=== PATIENT | female | born 1945 | race Caucasian/White ===

== ENCOUNTER 2019-12-24 14:39 | Outpatient (CLI) | payer OTHER, SELFPAY ==
[2019-12-24 15:22] LABS: Basophils Percent Auto 0.2 % (0.2-1.2); Eosinophils Absolute Auto 0.2 K/mm3 (0-0.3); Eosinophils Percent Auto 1.9 % (0-4.4); Hematocrit 32.8 % (37.0-47.0); Hemoglobin 10.1 g/dL (12.0-15.0); Immature Granulocyte Absolute 0.02 K/mm3 (0.00-0.031); Immature Granulocyte Percent A 0.2 % (0-0.5); Lymphocytes Absolute Auto 2.82 K/mm3 (0.9-3.2); Mean Corpuscular HGB Conc 30.8 g/dl (32-36); Mean Corpuscular Hemoglobin 27.5 pg (26-34); Mean Corpuscular Volume 89.4 fl (80-100); Mean Platelet Volume 12.7 fl (7.4-10.4); Monocytes Absolute Auto 0.5 K/mm3 (0.1-0.6); Monocytes Percent Auto 6.6 % (2.6-8.5); Neutrophils Absolute Auto 4.5 K/mm3 (1.3-6.7); Neutrophils Percent Auto 56.1 % (45.5-73.1); Platelet Count Result 187 k/mm3 (150-375); Red Blood Count 3.67 M/mm3 (4.2-5.4); Red Cell Distribution Width 13.5 % (11.5-14.5); White Blood Count 8.1 K/mm3 (4.5-10.0)
[2019-12-24 15:29] LABS: Hemoglobin A1C 5.9 % (<5.7)
[2019-12-24 15:36] LABS: Alanine Aminotransferase 15 U/L (4-35); Albumin Level 4.2 g/dL (3.5-5.1); Alkaline Phosphatase 73 U/L (38-126); Aspartate Amino Transferase 19 U/L (14-36); Bilirubin,Total 0.3 mg/dL (0.2-1.3); Blood Urea Nitrogen 21 mg/dL (7-17); Calcium 9.4 mg/dL (8.4-10.2); Carbon Dioxide 29 mmol/L (22-30); Chloride 101 mmol/L (98-107); Cholesterol 109 mg/dL (0-200); Estimated Glomerular Filt Rate > 60; Glucose 121 mg/dL (65-105); HDL Direct 52 mg/dL; Potassium 4.1 mmol/L (3.4-5.0); Sodium 140 mmol/L (137-145); Triglycerides 220 mg/dL (<150)
[2019-12-24 15:47] LABS: LDL Cholesterol Direct 36 mg/dL
[2019-12-24 16:07] LABS: Thyroid Stimulating Hormone 0.565 uIU/mL (0.465-4.680)
[2019-12-24 16:21] LABS: Creatinine Urine 126.9 mg/dL
[2019-12-24 16:27] LABS: MALB Creatinine Ratio 6.7 mg/g (0-30); Microalbumin Urine Random 8.5 mg/L (0-16.7)
[2019-12-24 16:58] LABS: Folic Acid > 20.0 ng/mL (2.76->20); Iron 55 ug/dL (37-170)
[2019-12-24 17:14] LABS: Percent Iron Saturation 13 % (20-50); Vitamin D 25 Hydroxy 42.4 ng/mL
== END 2019-12-24 14:40 | disposition home or self-care (01) ==
PROVIDERS: PCP Internal Medicine; Visit Provider Internal Medicine
DX: E55.9 Vitamin D deficiency, unspecified (principal); D64.9 Anemia, unspecified; I10 Essential (primary) hypertension; Z79.899 Other long term (current) drug therapy; Z79.4 Long term (current) use of insulin; E11.42 Type 2 diabetes mellitus with diabetic polyneuropathy
CPT/HCPCS: 36415; 80053; 80061; 82043; 82306; 82607; 82746; 83036; 83540; 83550; 84443; 85025

== ENCOUNTER 2019-12-28 13:30 | Outpatient (CLI) | payer OTHER, SELFPAY ==
[2019-12-28 15:08] LABS: IFOB Positive Control Positive; Immunochemical Fecal Occult Bl Negative (N)
== END 2019-12-28 13:31 | disposition home or self-care (01) ==
PROVIDERS: PCP Internal Medicine; Visit Provider Internal Medicine
DX: D64.9 Anemia, unspecified (principal); I10 Essential (primary) hypertension
CPT/HCPCS: 82274

== ENCOUNTER 2020-02-05 14:24 | Outpatient (CLI) | payer OTHER, SELFPAY ==
--- NOTE | ~2020-02-05 | MM_ITS ---
EXAMINATION: MM screening [facility] BI w yumiko HISTORY: Screening mammogram TECHNIQUE: Craniocaudal and mediolateral oblique 3-D tomosynthesis images were obtained and synthetic 2-D images were generated. Bilateral rotated lateral cc views. CAD analysis was submitted and interp reted. COMPARISON: 09/14/2018, 10/22/2016 bilateral digital screening mammogram examinations BREAST PARENCHYMAL COMPOSITION: There are scattered areas of fibroglandular density. FINDINGS: Benign calcifications. There is no evidence of suspicious mass, calcification, or vmware architect ural distortion to suggest malignancy in either breast. There has been no suspicious interval change. IMPRESSION: 1. No mammographic evidence of malignancy. 2. Recommend routine screening mammography in one year. BI-RADS Category 2: Benign finding(s). Reviewed, dictated and finalized at location A.
== END 2020-02-05 14:25 | disposition home or self-care (01) ==
PROVIDERS: PCP Internal Medicine; Visit Provider Internal Medicine
DX: Z12.31 Encounter for screening mammogram for malignant neoplasm of breast (principal)
CPT/HCPCS: 77063; 77067

== ENCOUNTER 2020-02-18 14:25 | Outpatient (CLI) | payer OTHER, SELFPAY ==
--- NOTE | ~2020-02-18 | DEXA_ITS ---
Bone Density Report Name: Mague Villalba Age: 74 Sex: Female Ethnicity: White Date of : 1945 Indication: postmenopausal; height loss; prior fracture; cancer; hysterectomy; Referring Provider: BRAD LUZ Study: Bone densitometry was performed. Exam Date: February 18, 2020 Accession number: [id number] Bone Density: Region BMD T-score Z-score Classification AP Spine (L2, L3) 1.126 0.6 3.0 Normal Femoral Neck (Left) 0.837 -0.1 1.9 Normal Total Hip (Left) 1.129 1.5 3.2 Normal Total Hip Bilateral Avg 1.064 1.0 2.6 Normal Femoral Neck (Right) 0.747 -0.9 1.1 Normal Total Hip (Right) 0.998 0.5 2.1 Normal World Health Organization criteria for BMD impression classify patients as: Normal (T-score at or above -1.0), Osteopenia (T-score between -1.0 and -2.5), or Osteoporosis (T-score at or below -2.5). 10-year Fracture Risk: FRAX not reported because: All T-scores for Spine Total, Hip Total, Femoral Neck at or above -1.0 Previous Exams: Region Exam Age BMD T-score BMD Change BMD Change Date g/cm2 vs Baseline vs Previous AP Spine(L2, L3) 02/18/2020 74 1.126 0.6 0.118(11.7%)# 0.025(2.3%)* 10/22/2016 71 1.101 0.4 0.093(9.2%)# -0.011(-1.0%)# 04/15/2011 65 1.111 0.5 0.104(10.3%)* 0.104(10.3%)* 05/17/2003 57 1.008 -0.5 Total Hip(Left) 02/18/2020 74 1.129 1.5 -0.003(-0.2%)# -0.018(-1.6%) 10/22/2016 71 1.147 1.7 0.016(1.4%)# -0.014(-1.2%)# 04/15/2011 65 1.161 1.8 0.030(2.6%)* 0.030(2.6%)* 05/17/2003 57 1.131 1.6 Total Hip(Right) 02/18/2020 74 0.998 0.5 -0.097(-8.8%)# -0.065(-6.1%)* 10/22/2016 71 1.062 1.0 -0.032(-2.9%)# -0.003(-0.3%)# 04/15/2011 65 1.065 1.0 -0.029(-2.7%)* -0.029(-2.7%)* 05/17/2003 57 1.095 1.3 *Denotes significance at 95% confidence level, LSC for AP Spine = 0.022 g/cm2, LSC for Total Hip = 0.027 g/cm2 Clinical Information Provided by Patient: Has had a low trauma fracture Has used the following medications: Vitamin D, Calcium Has the following medical conditions: Cancer, Hysterectomy Patient maximum height was 69 Menopause Age: 61 No regular weight bearing exercise Drinks caffeinated beverages Onset of menses at age 17 Number of children 5 Impression: The patient has normal bone mass. The patient has risk factors, including: previous fracture. The BMD for the Total Hip(Right) decreased, changing by -6.1% since the last DXA exam. Discuss
== END 2020-02-18 14:26 | disposition home or self-care (01) ==
LOC: ANHIMG 14:53
PROVIDERS: PCP Internal Medicine; Visit Provider Internal Medicine
DX: Z78.0 Asymptomatic menopausal state (principal)
CPT/HCPCS: 77080

== ENCOUNTER 2020-03-01 13:15 | Outpatient (CLI) | payer OTHER, SELFPAY ==
[2020-03-01 13:37] LABS: Basophils Percent Auto 0.3 % (0.2-1.2); Eosinophils Absolute Auto 0.1 K/mm3 (0-0.3); Eosinophils Percent Auto 1.9 % (0-4.4); Hematocrit 35.3 % (37.0-47.0); Hemoglobin 11.2 g/dL (12.0-15.0); Immature Granulocyte Absolute 0.02 K/mm3 (0.00-0.031); Immature Granulocyte Percent A 0.3 % (0-0.5); Lymphocytes Absolute Auto 2.87 K/mm3 (0.9-3.2); Lymphocytes Percent Auto 42.5 % (18.3-44.2); Mean Corpuscular HGB Conc 31.7 g/dl (32-36); Mean Corpuscular Hemoglobin 28.6 pg (26-34); Mean Corpuscular Volume 90.1 fl (80-100); Mean Platelet Volume 11.4 fl (7.4-10.4); Monocytes Absolute Auto 0.4 K/mm3 (0.1-0.6); Monocytes Percent Auto 6.4 % (2.6-8.5); Neutrophils Absolute Auto 3.3 K/mm3 (1.3-6.7); Neutrophils Percent Auto 48.6 % (45.5-73.1); Platelet Count Result 207 k/mm3 (150-375); Red Blood Count 3.92 M/mm3 (4.2-5.4); Red Cell Distribution Width 15.2 % (11.5-14.5); White Blood Count 6.8 K/mm3 (4.5-10.0)
[2020-03-01 13:49] LABS: Hemoglobin A1C 5.7 % (<5.7)
[2020-03-01 14:04] LABS: Creatinine Urine 124.2 mg/dL
[2020-03-01 14:17] LABS: Alanine Aminotransferase 16 U/L (4-35); Albumin Level 4.1 g/dL (3.5-5.1); Alkaline Phosphatase 57 U/L (38-126); Aspartate Amino Transferase 21 U/L (14-36); Bilirubin,Total 0.4 mg/dL (0.2-1.3); Blood Urea Nitrogen 27 mg/dL (7-17); Calcium 9.5 mg/dL (8.4-10.2); Carbon Dioxide 31 mmol/L (22-30); Chloride 103 mmol/L (98-107); Estimated Glomerular Filt Rate > 60; Potassium 4.6 mmol/L (3.4-5.0); Sodium 139 mmol/L (137-145)
[2020-03-01 14:31] LABS: MALB Creatinine Ratio < 4.8 mg/g (0-30); Microalbumin Urine Random < 6.0 mg/L (0-16.7)
[2020-03-01 15:16] LABS: Glucose 60 mg/dL (65-105)
== END 2020-03-01 13:16 | disposition home or self-care (01) ==
PROVIDERS: PCP Internal Medicine; Visit Provider Internal Medicine
DX: E11.40 Type 2 diabetes mellitus with diabetic neuropathy, unspecified (principal); Z79.4 Long term (current) use of insulin
CPT/HCPCS: 36415; 80053; 82043; 83036; 85025

== ENCOUNTER 2020-08-19 15:33 | Outpatient (CLI) | payer OTHER, SELFPAY ==
[2020-08-19 16:08] LABS: Basophils Percent Auto 0.2 % (0.2-1.2); Eosinophils Absolute Auto 0.2 K/mm3 (0-0.3); Eosinophils Percent Auto 1.8 % (0-4.4); Hematocrit 39.9 % (37.0-47.0); Hemoglobin 12.9 g/dL (12.0-15.0); Immature Granulocyte Absolute 0.04 K/mm3 (0.00-0.031); Immature Granulocyte Percent A 0.4 % (0-0.5); Lymphocytes Absolute Auto 3.36 K/mm3 (0.9-3.2); Lymphocytes Percent Auto 35.3 % (18.3-44.2); Mean Corpuscular HGB Conc 32.3 g/dl (32-36); Mean Corpuscular Volume 89.7 fl (80-100); Mean Platelet Volume 11.3 fl (7.4-10.4); Monocytes Absolute Auto 0.6 K/mm3 (0.1-0.6); Monocytes Percent Auto 6.1 % (2.6-8.5); Neutrophils Absolute Auto 5.3 K/mm3 (1.3-6.7); Neutrophils Percent Auto 56.2 % (45.5-73.1); Platelet Count Result 220 k/mm3 (150-375); Red Blood Count 4.45 M/mm3 (4.2-5.4); Red Cell Distribution Width 13.2 % (11.5-14.5); White Blood Count 9.5 K/mm3 (4.5-10.0)
[2020-08-19 16:22] LABS: Alanine Aminotransferase 19 U/L (4-35); Albumin Level 4.4 g/dL (3.5-5.1); Alkaline Phosphatase 89 U/L (38-126); Anion Gap 11 mmol/L (8-16); Aspartate Amino Transferase 27 U/L (14-36); Bilirubin,Total 0.5 mg/dL (0.2-1.3); Blood Urea Nitrogen 23 mg/dL (7-17); Calcium 10.7 mg/dL (8.4-10.2); Carbon Dioxide 33 mmol/L (22-30); Chloride 98 mmol/L (98-107); Estimated Glomerular Filt Rate > 60; Glucose 108 mg/dL (65-105); Potassium 4.5 mmol/L (3.4-5.0); Sodium 142 mmol/L (137-145)
[2020-08-19 16:24] LABS: Hemoglobin A1C 5.6 % (<5.7)
[2020-08-19 16:44] LABS: Iron 48 ug/dL (37-170)
[2020-08-19 16:53] LABS: Percent Iron Saturation 12 % (20-50)
[2020-08-19 17:16] LABS: Creatinine Urine 134.5 mg/dL
[2020-08-19 17:20] LABS: MALB Creatinine Ratio 7.4 mg/g (0-30); Microalbumin Urine Random 9.9 mg/L (0-16.7)
== END 2020-08-19 15:34 | disposition home or self-care (01) ==
LOC: ANHLAB 15:34
PROVIDERS: PCP Internal Medicine; Visit Provider Internal Medicine
DX: E11.40 Type 2 diabetes mellitus with diabetic neuropathy, unspecified (principal); Z79.4 Long term (current) use of insulin; D64.9 Anemia, unspecified
CPT/HCPCS: 36415; 80053; 82043; 82728; 83036; 83540; 83550; 85025

== ENCOUNTER 2020-11-29 13:35 | Outpatient (CLI) | payer OTHER, SELFPAY ==
[2020-11-29 14:07] LABS: Hemoglobin A1C 5.9 % (<5.7)
[2020-11-29 14:28] LABS: Iron 72 ug/dL (37-170)
[2020-11-29 14:31] LABS: Creatinine Urine 248.1 mg/dL
[2020-11-29 14:35] LABS: MALB Creatinine Ratio 12.3 mg/g (0-30); Microalbumin Urine Random 30.4 mg/L (0-16.7)
[2020-11-29 14:39] LABS: Percent Iron Saturation 17 % (20-50)
[2020-11-29 16:23] LABS: Alanine Aminotransferase 18 U/L (4-35); Albumin Level 4.2 g/dL (3.5-5.1); Alkaline Phosphatase 88 U/L (38-126); Anion Gap 8 mmol/L (8-16); Aspartate Amino Transferase 22 U/L (14-36); Bilirubin,Total 0.4 mg/dL (0.2-1.3); Blood Urea Nitrogen 32 mg/dL (7-17); Carbon Dioxide 28 mmol/L (22-30); Chloride 104 mmol/L (98-107); Estimated Glomerular Filt Rate > 60; Glucose 213 mg/dL (65-105); Potassium 4.2 mmol/L (3.4-5.0); Sodium 140 mmol/L (137-145)
== END 2020-11-29 13:36 | disposition home or self-care (01) ==
PROVIDERS: PCP Internal Medicine; Visit Provider Internal Medicine
DX: E11.40 Type 2 diabetes mellitus with diabetic neuropathy, unspecified (principal); E78.5 Hyperlipidemia, unspecified; Z79.4 Long term (current) use of insulin; E61.1 Iron deficiency
CPT/HCPCS: 36415; 80053; 82043; 82728; 83036; 83540; 83550

== ENCOUNTER 2021-06-16 11:13 | Outpatient (CLI) | payer OTHER, SELFPAY ==
[2021-06-16 12:00] LABS: Basophils Percent Auto 0.3 % (0.2-1.2); Eosinophils Absolute Auto 0.1 K/mm3 (0-0.3); Eosinophils Percent Auto 1.4 % (0-4.4); Hematocrit 37.6 % (37.0-47.0); Hemoglobin 12.3 g/dL (12.0-15.0); Immature Granulocyte Absolute 0.02 K/mm3 (0.00-0.031); Immature Granulocyte Percent A 0.3 % (0-0.5); Lymphocytes Percent Auto 28.8 % (18.3-44.2); Mean Corpuscular HGB Conc 32.7 g/dl (32-36); Mean Corpuscular Hemoglobin 29.1 pg (26-34); Mean Corpuscular Volume 88.9 fl (80-100); Mean Platelet Volume 11.7 fl (7.4-10.4); Monocytes Absolute Auto 0.5 K/mm3 (0.1-0.6); Neutrophils Absolute Auto 4.8 K/mm3 (1.3-6.7); Neutrophils Percent Auto 63.2 % (45.5-73.1); Platelet Count Result 208 k/mm3 (150-375); Red Blood Count 4.23 M/mm3 (4.2-5.4); Red Cell Distribution Width 12.7 % (11.5-14.5); White Blood Count 7.7 K/mm3 (4.5-10.0)
[2021-06-16 12:13] LABS: Alanine Aminotransferase 15 U/L (4-35); Albumin Level 4.5 g/dL (3.5-5.1); Alkaline Phosphatase 69 U/L (38-126); Anion Gap 9 mmol/L (8-16); Aspartate Amino Transferase 20 U/L (14-36); Bilirubin,Total 0.8 mg/dL (0.2-1.3); Blood Urea Nitrogen 21 mg/dL (7-17); Calcium 9.9 mg/dL (8.4-10.2); Carbon Dioxide 27 mmol/L (22-30); Chloride 100 mmol/L (98-107); Cholesterol 135 mg/dL (0-200); Estimated Glomerular Filt Rate > 60; Glucose 143 mg/dL (65-110); HDL Direct 46 mg/dL; Potassium 4.2 mmol/L (3.4-5.0); Sodium 136 mmol/L (137-145); Triglycerides 231 mg/dL (<150)
[2021-06-16 12:18] LABS: Creatinine Urine 83.2 mg/dL
[2021-06-16 12:22] LABS: Iron 68 ug/dL (37-170)
[2021-06-16 12:23] LABS: MALB Creatinine Ratio 10.2 mg/g (0-30); Microalbumin Urine Random 8.5 mg/L (0-16.7)
[2021-06-16 12:24] LABS: LDL Cholesterol Direct 45 mg/dL
[2021-06-16 12:31] LABS: Percent Iron Saturation 18 % (20-50)
[2021-06-16 12:40] LABS: Thyroid Stimulating Hormone 0.017 uIU/mL (0.465-4.680)
[2021-06-16 13:17] LABS: Folic Acid > 20.0 ng/mL (2.76->20)
[2021-06-16 19:06] LABS: Vitamin D 25 Hydroxy 34.7 ng/mL
== END 2021-06-16 11:14 | disposition home or self-care (01) ==
PROVIDERS: PCP Internal Medicine; Visit Provider Internal Medicine
DX: E53.8 Deficiency of other specified B group vitamins (principal); E11.319 Type 2 diabetes mellitus with unspecified diabetic retinopathy without macular edema; E11.40 Type 2 diabetes mellitus with diabetic neuropathy, unspecified; E55.9 Vitamin D deficiency, unspecified; E61.1 Iron deficiency; E78.5 Hyperlipidemia, unspecified; F33.1 Major depressive disorder, recurrent, moderate; I10 Essential (primary) hypertension; Z79.4 Long term (current) use of insulin; E78.2 Mixed hyperlipidemia
CPT/HCPCS: 36415; 80053; 80061; 82043; 82306; 82607; 82728; 82746; 83036; 83540; 83550; 84443; 85025

== ENCOUNTER 2021-10-20 14:01 | Outpatient (CLI) | payer OTHER, SELFPAY ==
[2021-10-20 14:37] LABS: Alanine Aminotransferase 17 U/L (4-35); Albumin Level 4.5 g/dL (3.5-5.1); Alkaline Phosphatase 80 U/L (38-126); Anion Gap 9 mmol/L (8-16); Aspartate Amino Transferase 22 U/L (14-36); Bilirubin,Total 0.4 mg/dL (0.2-1.3); Blood Urea Nitrogen 25 mg/dL (7-17); Calcium 10.1 mg/dL (8.4-10.2); Carbon Dioxide 27 mmol/L (22-30); Chloride 103 mmol/L (98-107); Estimated Glomerular Filt Rate > 60; Glucose 149 mg/dL (65-110); Sodium 139 mmol/L (137-145)
[2021-10-20 14:51] LABS: Creatinine Urine 106.7 mg/dL
[2021-10-20 14:55] LABS: MALB Creatinine Ratio 12.8 mg/g (0-30); Microalbumin Urine Random 13.7 mg/L (0-16.7)
[2021-10-20 15:08] LABS: Thyroid Stimulating Hormone 0.437 uIU/mL (0.465-4.680)
[2021-10-20 15:29] LABS: Free T4 Free Thyroxine 1.16 ng/mL (0.78-2.19)
== END 2021-10-20 14:02 | disposition home or self-care (01) ==
PROVIDERS: PCP Internal Medicine; Visit Provider Internal Medicine
DX: R79.89 Other specified abnormal findings of blood chemistry (principal); E66.9 Obesity, unspecified; E66.3 Overweight; E61.1 Iron deficiency; E11.40 Type 2 diabetes mellitus with diabetic neuropathy, unspecified; Z79.4 Long term (current) use of insulin; E78.2 Mixed hyperlipidemia
CPT/HCPCS: 36415; 80053; 82043; 83036; 84439; 84443

== ENCOUNTER → 2021-10-31 02:38 | Outpatient (CLI) | payer OTHER, SELFPAY ==
[2021-10-31 18:15] LABS: Influenza A QL RT-PCR Negative (Negative); Influenza B QL RT-PCR Negative (Negative); SARS-CoV-2 RNA PCR Negative
== END ==
PROVIDERS: PCP Internal Medicine; Visit Provider Internal Medicine
DX: R68.89 Other general symptoms and signs (principal); Z20.822 Contact with and (suspected) exposure to COVID-19
CPT/HCPCS: 87502; 87804; C9803; U0003; U0005

== ENCOUNTER → 2021-11-16 08:37 | Outpatient (CLI) | payer OTHER, SELFPAY ==
[2021-11-16 12:45] LABS: Influenza A QL RT-PCR Negative (Negative); Influenza B QL RT-PCR Negative (Negative); SARS-CoV-2 RNA PCR Positive
== END ==
PROVIDERS: PCP Internal Medicine; Visit Provider Internal Medicine
DX: R68.89 Other general symptoms and signs (principal); U07.1 COVID-19
CPT/HCPCS: 87502; C9803; U0003; U0005

== ENCOUNTER 2021-12-07 14:27 | Emergency (ER) | payer OTHER, SELFPAY ==
[2021-12-07 14:37] VITALS: BP 136/58; PULSE 81; RESP 16; TEMP 36.7; O2SAT 99
--- NOTE | 2021-12-07 14:41 | ED.EYEPROB ---
HPI - Eye Problem General Chief complaint: Eye Problems Stated complaint: Eye pain Time Seen by Provider: 12/07/21 14:43 Source: patient and RN notes reviewed Mode of arrival: ambulatory Limitations: no limitations History of Present Illness HPI Narrative: 76-year-old female presents to the [facility] with complaints of a red painful area to the right lower lid for the last couple of days. States she had an injection by her retina specialist. Treatment prior to arrival. Denies any trauma to the eye. chief complaint: eye pain Related Data Home Medications Medication Instructions Recorded Confirmed cholecalciferol (vitamin D3) 50 2,000 unit PO DAILY 09/20/19 11/11/21 mcg (2,000 unit) tablet glimepiride [Amaryl] mg 12/07/21 semaglutide [Rybelsus] mg PO 12/07/21 Allergies Allergy/AdvReac Type Severity Reaction Status Date / Time BURT Inhibitors Allergy Mild cough Verified 11/11/21 08:39 MEPERIDINE HCL Allergy Mild BECOMES Uncoded 11/11/21 08:39 COMBATIVE Review of Systems Review of Systems: All systems reviewed & are unremarkable except as noted in HPI and below Constitutional: Constitutional: Reports no additional constitutional complaints, Denies chills and Denies fever(s) Eyes: Eyes: Reports as per HPI, Denies eye discharge, Denies floaters, Denies itchy eyes, Denies loss of peripheral vision, Denies eye pain and Denies photophobia Comments: Swelling to the right lower lid ENT: Reports system reviewed and no additional complaints, except as documented Cardiovascular: Cardiovascular: Reports no additional cardiovascular complaints and Denies chest pain Respiratory: Respiratory: Reports no additional respiratory complaints Gastrointestinal: Gastrointestinal: Reports no additional gastrointestinal complaints and Denies abdominal pain Musculoskeletal: Musculoskeletal: Reports no additional musculoskeletal complaints Integumentary/Breasts: Skin/Breast: Reports system reviewed and no additional complaints, except as docu Neurologic: Reports system reviewed and no additional complaints, except as documented Psychiatric: Psychiatric: Reports no additional psychiatric complaints Allergic/Immunologic: Allergic/Immunologic: Reports no additional allergic/immunologic complaints PMFSH Past Medical History Medical History Diabetes mellitus with diabetic neuropathy, with long-term current use of insulin Diabetic retinopathy associated with type 2 diabetes mellitus HTN (hypertension) Left ventricular hypertrophy Mixed hyperlipidemia Sleep disorder Tibial plateau fracture, right Surgical History Surgical History History of lumpectomy History of partial hysterectomy Family History Family History Mother Hypertension Patient's mother is Family history of arthritis Family history of malignant neoplasm Father Family history of liver disease Patient's father is Cerebrovascular accident, Onset Age: 68 Sibling Patient's sister is in good health Patient's brother is in good health Family history of malignant neoplasm, Onset Age: 60 Social History Social History Smoking status: Never smoker Second hand tobacco smoke exposure: No Alcohol intake: never Substance use: never Substance use type: does not use Gender identity (if verbalized by the patient): Female Comments At the time of my signature, I reviewed and agree with the nursing past medical, surgical, social, and family history. There is no relevant family history pertinent to the patient complaint. Exam Const: General: healthy appearing, no acute distress and alert Nutritional Appearance: well nourished Orientation/consciousness: patient oriented x3 Limitations
== END 2021-12-07 14:58 | disposition home or self-care (01) ==
PROVIDERS: Emergency Provider Nurse Practitioner; PCP Internal Medicine
DX: H00.012 Hordeolum externum right lower eyelid (principal); E11.42 Type 2 diabetes mellitus with diabetic polyneuropathy; E11.319 Type 2 diabetes mellitus with unspecified diabetic retinopathy without macular edema; Z79.4 Long term (current) use of insulin; Z79.84 Long term (current) use of oral hypoglycemic drugs; I10 Essential (primary) hypertension; E78.2 Mixed hyperlipidemia; Z90.711 Acquired absence of uterus with remaining cervical stump
CPT/HCPCS: 99213; G0463

== ENCOUNTER 2022-02-11 13:45 | Outpatient (CLI) | payer OTHER, SELFPAY ==
[2022-02-11 14:18] LABS: Hematocrit 41.3 % (37.0-47.0); Hemoglobin 13.3 g/dL (12.0-15.0); Mean Corpuscular HGB Conc 32.2 g/dl (32-36); Mean Corpuscular Hemoglobin 28.7 pg (26-34); Mean Corpuscular Volume 89.2 fl (80-100); Mean Platelet Volume 11.7 fl (7.4-10.4); Platelet Count Result 206 k/mm3 (150-375); Red Blood Count 4.63 M/mm3 (4.2-5.4); Red Cell Distribution Width 13.6 % (11.5-14.5); White Blood Count 8.6 K/mm3 (4.5-10.0)
[2022-02-11 14:29] LABS: Anion Gap 9 mmol/L (8-16); Blood Urea Nitrogen 26 mg/dL (7-17); Calcium 9.7 mg/dL (8.4-10.2); Carbon Dioxide 25 mmol/L (22-30); Chloride 103 mmol/L (98-107); Estimated Glomerular Filt Rate > 60; Glucose 173 mg/dL (65-110); Sodium 137 mmol/L (137-145)
[2022-02-11 16:19] LABS: Hemoglobin A1C 6.4 % (<5.7)
[2022-02-11 19:59] LABS: Creatinine Urine 41.8 mg/dL
[2022-02-11 20:07] LABS: MALB Creatinine Ratio < 14.4 mg/g (0-30); Microalbumin Urine Random < 6.0 mg/L (0-16.7)
== END 2022-02-11 13:46 | disposition home or self-care (01) ==
LOC: ANHLAB 13:49
PROVIDERS: PCP Internal Medicine; Visit Provider Internal Medicine
DX: E11.9 Type 2 diabetes mellitus without complications (principal); E61.1 Iron deficiency; F33.1 Major depressive disorder, recurrent, moderate; I10 Essential (primary) hypertension
CPT/HCPCS: 36415; 80048; 82043; 83036; 85027

== ENCOUNTER 2022-04-13 13:36 | Outpatient (CLI) | payer OTHER, SELFPAY ==
[2022-04-13 14:14] LABS: Alanine Aminotransferase 15 U/L (6-35); Albumin Level 4.5 g/dL (3.5-5.1); Alkaline Phosphatase 78 U/L (38-126); Anion Gap 8 mmol/L (8-16); Aspartate Amino Transferase 18 U/L (14-36); Bilirubin,Total 0.4 mg/dL (0.2-1.3); Blood Urea Nitrogen 22 mg/dL (7-17); Calcium 10.4 mg/dL (8.4-10.2); Carbon Dioxide 31 mmol/L (22-30); Chloride 100 mmol/L (98-107); Estimated Glomerular Filt Rate > 60; Glucose 153 mg/dL (65-110); Potassium 4.5 mmol/L (3.4-5.0); Sodium 139 mmol/L (137-145)
[2022-04-13 15:14] LABS: Hemoglobin A1C 6.2 % (<5.7)
[2022-04-13 15:25] LABS: Creatinine Urine 65.5 mg/dL
[2022-04-13 15:54] LABS: MALB Creatinine Ratio < 9.2 mg/g (0-30); Microalbumin Urine Random < 6.0 mg/L (0-16.7)
== END 2022-04-13 13:37 | disposition home or self-care (01) ==
LOC: ANHLAB 13:40
PROVIDERS: PCP Internal Medicine; Visit Provider Internal Medicine
DX: E11.40 Type 2 diabetes mellitus with diabetic neuropathy, unspecified (principal); Z79.4 Long term (current) use of insulin
CPT/HCPCS: 36415; 80053; 82043; 83036

== ENCOUNTER 2022-05-04 09:33 | Outpatient (CLI) | payer OTHER, SELFPAY ==
[2022-05-04 10:38] LABS: Parathyroid Intact 65.4 pg/mL (7.5-53.5)
[2022-05-04 22:12] LABS: Vitamin D 25 Hydroxy 35.7 ng/mL
[2022-05-07 13:03] LABS: Ionized Calcium 5.4 mg/dL (4.8-5.6)
== END 2022-05-04 09:34 | disposition home or self-care (01) ==
PROVIDERS: PCP Internal Medicine; Visit Provider Internal Medicine
DX: E83.52 Hypercalcemia (principal)
CPT/HCPCS: 36415; 82306; 82330; 83970

== ENCOUNTER 2022-05-10 14:54 | Outpatient (CLI) | payer OTHER, SELFPAY ==
[2022-05-16 15:39] LABS: Total Volume 2625 mL
== END 2022-05-10 14:55 | disposition home or self-care (01) ==
PROVIDERS: PCP Internal Medicine; Visit Provider Internal Medicine
DX: E83.52 Hypercalcemia (principal)
CPT/HCPCS: 82340

== ENCOUNTER 2022-11-17 13:48 | Outpatient (CLI) | payer OTHER, SELFPAY ==
--- NOTE | ~2022-11-17 | CT_ITS ---
EXAMINATION: CT brain wo con INDICATION: Headache COMPARISON: None TECHNIQUE: Standard unenhanced head CT. The dose-length product (DLP) was 529.67 mGy-cm. The mA was a djusted according to patient size. Iterative reconstruction technique was employed. FINDINGS: There is no acute intraparenchymal hemorrhage. No evidence of mass lesion. No evidence of a cute infarction. There is mild periventricular and subcortical hypodensity probably related to small vessel ischemic disease. There is mild prominence of the sulci and ventricles related to cerebral atr ophy. Intracranial calcified cerebral atherosclerosis is noted. There are no extra-axial collections. There is no mass effect or midline shift. The orbits and soft tissues are unremarkable. There is mil d mucosal thickening of the paranasal sinuses. IMPRESSION: 1. No acute intracranial abnormality. 2. Age related findings. Reviewed, dictated and finalized at location B. TECHNICIAN
[2022-11-17 15:00] LABS: Basophils Percent Auto 0.3 % (0.2-1.2); Eosinophils Absolute Auto 0.1 K/mm3 (0-0.3); Eosinophils Percent Auto 1.4 % (0-4.4); Hemoglobin 15.1 g/dL (12.0-15.0); Immature Granulocyte Absolute 0.02 K/mm3 (0.00-0.031); Immature Granulocyte Percent A 0.3 % (0-0.5); Lymphocytes Absolute Auto 2.28 K/mm3 (0.9-3.2); Mean Corpuscular HGB Conc 32.1 g/dl (32-36); Mean Corpuscular Hemoglobin 28.8 pg (26-34); Mean Corpuscular Volume 89.5 fl (80-100); Mean Platelet Volume 11.7 fl (7.4-10.4); Monocytes Absolute Auto 0.5 K/mm3 (0.1-0.6); Monocytes Percent Auto 5.7 % (2.6-8.5); Neutrophils Percent Auto 63.3 % (45.5-73.1); Platelet Count Result 229 k/mm3 (150-375); Red Blood Count 5.25 M/mm3 (4.2-5.4); Red Cell Distribution Width 13.8 % (11.5-14.5); White Blood Count 7.9 K/mm3 (4.5-10.0)
[2022-11-17 15:12] LABS: Alanine Aminotransferase 19 U/L (6-35); Albumin Level 4.6 g/dL (3.5-5.1); Alkaline Phosphatase 67 U/L (38-126); Anion Gap 9 mmol/L (8-16); Aspartate Amino Transferase 22 U/L (14-36); Bilirubin,Total 0.9 mg/dL (0.2-1.3); Blood Urea Nitrogen 18 mg/dL (7-17); CRP < 0.5 mg/dL (<1.0); Calcium 10.2 mg/dL (8.4-10.2); Carbon Dioxide 30 mmol/L (22-30); Chloride 99 mmol/L (98-107); Estimated Glomerular Filt Rate > 60; Glucose 189 mg/dL (65-110); Potassium 4.3 mmol/L (3.4-5.0); Sodium 138 mmol/L (137-145)
[2022-11-17 15:31] LABS: Appearance Urine Slightly Cloudy (Clear); Bilirubin Urine Negative (Negative); Blood Urine Negative (Negative); Color Urine Yellow (Yellow); Glucose Urine UA 3+ mg/dL (Negative); Ketones Urine Negative (Negative); Leukocyte Esterase Ur Negative LEU/UL (NEGATIVE); Nitrate Urine Negative (Negative); Protein Urine Negative (Negative); Urobilinogen Urine 0.2 mg/dL (<2.0); pH Urine 5.5 (5.0-9.0)
[2022-11-17 15:33] LABS: Bacteria Urine Trace /hpf; RBC Urine 0-2 /hpf (0-2); Squamous Epithelial Cell Urine Rare /hpf (Few)
[2022-11-17 15:39] LABS: Add Urine Microscopic? YES
[2022-11-17 16:14] LABS: Erythrocyte Sedimentation Rate 8 mm/hr (0-20)
[2022-11-17 17:01] LABS: Vitamin D 25 Hydroxy 35.4 ng/mL
== END 2022-11-17 13:49 | disposition home or self-care (01) ==
PROVIDERS: PCP Internal Medicine; Visit Provider Nurse Practitioner Family
DX: R51.9 Headache, unspecified (principal); E55.9 Vitamin D deficiency, unspecified; I10 Essential (primary) hypertension; E11.9 Type 2 diabetes mellitus without complications
CPT/HCPCS: 36415; 70450; 80053; 81001; 82306; 83036; 85025; 85652; 86140

== ENCOUNTER 2023-02-03 18:47 | Emergency (ER) | payer OTHER, SELFPAY ==
[2023-02-03 19:01] VITALS: BP 142/73; PULSE 72; RESP 14; TEMP 36.6; O2SAT 96
--- NOTE | 2023-02-03 19:14 | ED.GENADULT ---
HPI - General Adult General Chief complaint: Unspecified Stated complaint: Took Extra Dose of Diabetic Meds Time Seen by Provider: 02/03/23 19:17 Source: patient, RN notes reviewed and old records reviewed Mode of arrival: ambulatory Limitations: no limitations History of Present Illness HPI narrative: 77 yo female Patient presents to the [facility] after she took an extra dose of her Rybelsus this evening. Patient states she normally takes 14 mg every morning. Was distracted this evening and took a dose this evening at 6:45 p.m., noticed that she made this air and came directly to the [facility]. Has no complaints at this time.. Onset (ago): minute(s) (15) Related Data Home Medications Medication Instructions Recorded Confirmed cholecalciferol (vitamin D3) 50 2,000 unit PO DAILY 09/20/19 02/03/23 mcg (2,000 unit) tablet gabapentin 300 mg capsule 300 mg PO QHS 11/23/22 02/03/23 Allergies Allergy/AdvReac Type Severity Reaction Status Date / Time BURT Inhibitors Allergy Mild cough Verified 11/23/22 13:19 MEPERIDINE HCL Allergy Mild BECOMES Uncoded 11/23/22 13:19 COMBATIVE Review of Systems Review of Systems: All systems reviewed & are unremarkable except as noted in HPI and below Constitutional: Constitutional: Reports no additional constitutional complaints Eyes: Eyes: Reports no additional eye complaints ENT: Reports system reviewed and no additional complaints, except as documented Cardiovascular: Cardiovascular: Reports no additional cardiovascular complaints, Denies chest pain and Denies dyspnea Respiratory: Respiratory: Reports no additional respiratory complaints, Denies chest congestion, Denies cough and Denies dyspnea Gastrointestinal: Gastrointestinal: Reports no additional gastrointestinal complaints, Denies abdominal pain, Denies nausea and Denies vomiting Musculoskeletal: Musculoskeletal: Reports no additional musculoskeletal complaints Integumentary/Breasts: Skin/Breast: Reports system reviewed and no additional complaints, except as docu Neurologic: Reports system reviewed and no additional complaints, except as documented Psychiatric: Psychiatric: Reports no additional psychiatric complaints Allergic/Immunologic: Allergic/Immunologic: Reports no additional allergic/immunologic complaints PMFSH Past Medical History Medical History Arthritis Benign essential HTN Breast screening 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 Closed fracture of right tibial plateau with routine healing Colon cancer screening Diabetes mellitus with diabetic neuropathy, with long-term current use of insulin Diabetic retinopathy associated with type 2 diabetes mellitus Dietary counseling and surveillance (01/09/18) DJD (degenerative joint disease), lumbosacral HSV (herpes simplex virus) infection HTN (hypertension) Hx of breast cancer Hypovitaminosis D Immunization counseling Left breast mass Left ventricular hypertrophy group home (current) use of insulin MDD (major depressive disorder), recurrent episode, mild Mixed hyperlipidemia Mixed hyperlipidemia Mixed hyperlipidemia due to type 2 diabetes mellitus Postmenopause Right ear impacted cerumen Sleep disorder Sleep disorder Tibial plateau fracture, right Type 2 diabetes mellitus with hyperglycemia Surgical History Surgical History History of lumpectomy History of partial hysterectomy Family History Family History Mother Hypertension Patient's mother is Family history of arthritis Family history of malignant neoplasm Father Family history of liver disease Patient's father is Cerebrovascular accident, Onset Age: 68 Sibling Patient's sister is in good health Patient's brother is in good health Family history of malignant ne
[2023-02-03 19:22] LABS: Glucose Point of Care 115 mg/dl (65-105)
== END 2023-02-03 19:39 | disposition home or self-care (01) ==
PROVIDERS: Emergency Provider Nurse Practitioner; PCP Internal Medicine
DX: T38.3X1A Poisoning by insulin and oral hypoglycemic [antidiabetic] drugs, accidental (unintentional), initial encounter (principal); I10 Essential (primary) hypertension; E11.42 Type 2 diabetes mellitus with diabetic polyneuropathy; E11.319 Type 2 diabetes mellitus with unspecified diabetic retinopathy without macular edema; Z79.84 Long term (current) use of oral hypoglycemic drugs; M47.817 Spondylosis without myelopathy or radiculopathy, lumbosacral region; Z85.3 Personal history of malignant neoplasm of breast; E78.2 Mixed hyperlipidemia; Z90.711 Acquired absence of uterus with remaining cervical stump
CPT/HCPCS: 82948; 99212; G0463

== ENCOUNTER 2023-07-05 11:30 | Outpatient (CLI) | payer OTHER, SELFPAY ==
--- NOTE | ~2023-07-05 | MM_ITS ---
EXAMINATION: MM screening [facility] BI w yumiko HISTORY: Screening TECHNIQUE: Craniocaudal and mediolateral oblique 3-D tomosynthesis images were obtained and synthetic 2-D images were generated. CAD analysis was submitted and interpreted. COMPARISON: Comparison to multiple prior studies sequentially, with oldest reviewed study dated 03/2017. BREAST PARENCHYMAL COMPOSITION: There are scattered areas of fibroglandular density. FINDINGS: There are benign breast calcifications. There is no evidence of suspicious mass, calcificat ion, or architectural distortion to suggest malignancy in either breast. There has been no suspicious interval change. IMPRESSION: 1. No mammographic evidence of malignancy. 2. Recommend routine screening mammography in one year. BI-RADS Category 2: Benign finding(s). Reviewed, dictated and finalized at location A.
--- NOTE | ~2023-07-05 | DEXA_ITS ---
Bone Density Report Name: CANDY PAIZ Age: 77 Sex: Female Ethnicity: White Date of : 1945 Indication: postmenopausal; screening for osteoporosis; height loss; prior fracture; cancer; hysterectomy; Referring Provider: YI WASHBURN Study: Bone densitometry was performed. Exam Date: July 05, 2023 Accession number: [id number] Bone Density: Region BMD T-score Z-score Classification AP Spine(L2, L3) 1.087 0.3 2.8 Normal Femoral Neck (Left) 0.808 -0.4 1.8 Normal Total Hip (Left) 1.023 0.7 2.5 Normal Femoral Neck (Right) 0.759 -0.8 1.4 Normal Total Hip (Right) 0.956 0.1 2.0 Normal Total Hip Mean 0.989 0.4 2.3 Normal World Health Organization criteria for BMD impression classify patients as: Normal (T-score at or above -1.0), Osteopenia (T-score between -1.0 and -2.5), or Osteoporosis (T-score at or below -2.5). 10-year Fracture Risk: FRAX not reported because: All T-scores for Spine Total, Hip Total, Femoral Neck at or above -1.0 Previous Exams: Region Exam Age BMD T-score BMD Change BMD Change Date g/cm2 vs Baseline vs Previous AP Spine (L2-L3) 07/05/2023 77 1.087 0.3 -0.013 (-1.2%) -0.038 (-3.4%) 02/18/2020 74 1.126 0.6 0.025 (2.3%)* 0.025 (2.3%)* 10/22/2016 71 1.101 0.4 Total Hip(Left) 07/05/2023 77 1.023 0.7 -0.124 (-10.8% -0.106 (-9.4%) 02/18/2020 74 1.129 1.5 -0.018 (-1.6%) -0.018 (-1.6%) 10/22/2016 71 1.147 1.7 Total Hip(Right) 07/05/2023 77 0.956 0.1 -0.107 (-10.1% -0.042 (-4.2%) 02/18/2020 74 0.998 0.5 -0.065 (-6.1%) -0.065 (-6.1%) 10/22/2016 71 1.062 1.0 *Denotes significance at 95% confidence level, LSC for AP Spine = 0.022 g/cm2, LSC for Total Hip = 0.027 g/cm2 Clinical Information Provided by Patient: Has had a low trauma fracture Has used the following medications: Vitamin D, Calcium Has the following medical conditions: Cancer, Hysterectomy Patient maximum height was 69 Menopause Age: 39 No regular weight bearing exercise Drinks caffeinated beverages Onset of menses at age 17 Number of children 5 Impression: The patient has normal bone mass. The patient has risk factors, including: previous fracture. The BMD for the AP Spine (L2-L3) decreased, changing by -3.4% since the last DXA exam. The BMD for the Total Hip(Left) decreased, changing by -9.4% since the last DXA exam. The BMD for the Total Hip(Right) decreased, changing by -4.2% since the las
[2023-07-05 16:51] LABS: Alanine Aminotransferase 16 U/L (6-35); Albumin Level 4.3 g/dL (3.5-5.1); Alkaline Phosphatase 63 U/L (38-126); Anion Gap 10 mmol/L (8-16); Aspartate Amino Transferase 20 U/L (14-36); Bilirubin,Total 0.6 mg/dL (0.2-1.3); Blood Urea Nitrogen 22 mg/dL (7-17); Calcium 10.2 mg/dL (8.4-10.2); Carbon Dioxide 27 mmol/L (22-30); Chloride 103 mmol/L (98-107); Cholesterol 130 mg/dL (0-200); Estimated Glomerular Filt Rate > 60; Glucose 102 mg/dL (65-110); HDL Direct 58 mg/dL; Potassium 4.2 mmol/L (3.4-5.0); Sodium 140 mmol/L (137-145); Triglycerides 149 mg/dL (<150)
[2023-07-05 17:02] LABS: LDL Cholesterol Direct 53 mg/dL
[2023-07-05 18:59] LABS: Hemoglobin A1C 5.8 % (<5.7)
== END 2023-07-05 14:56 ==
PROVIDERS: PCP Nurse Practitioner Family; Visit Provider Nurse Practitioner
DX: Z12.31 Encounter for screening mammogram for malignant neoplasm of breast (principal); Z78.0 Asymptomatic menopausal state; E78.5 Hyperlipidemia, unspecified; E11.9 Type 2 diabetes mellitus without complications
CPT/HCPCS: 36415; 77063; 77067; 77080; 80053; 80061; 83036

== ENCOUNTER 2024-01-18 15:51 | Outpatient (CLI) | payer OTHER, SELFPAY ==
--- NOTE | ~2024-01-18 | XR_ITS ---
XR hip LT min 2V DATE: 01/18/2024 16:57 INDICATION: Chronic left hip pain. No injury. TECHNIQUE: AP and lateral views COMPARISON: None FINDINGS: No fracture or dislocation, avascular necrosis or bone destruction of left hip. Left hip merlene int space appears well preserved. The pubic symphysis and sacroiliac joints appear intact. IMPRESSION: No significant abnormality of left hip Reviewed, dictated and finalized at location B.
--- NOTE | ~2024-01-18 | XR_ITS ---
XR lumbar spine 2-3V DATE: 01/18/2024 16:59 INDICATION: Chronic back pain, left lower extremity radiculopathy TECHNIQUE: AP, lateral, coned lateral lumbosacral views COMPARISON: None FINDINGS: There is approximately 40 degrees rotatory dextroscoliosis of the lumbar spine measured fro m L1 to L4. There is multilevel severe degenerative disc disease. Particularly severe on the left at L1-2 and L3- 4 and on the right at L4-5 and L5-S1. Osteopenia. There is degenerative change at the apophyseal joints. There is associated grade 1 anterolisthesis at L3-4. No fracture or bone destruction is evident. The sacroiliac joints are intact. IMPRESSION: 40 degrees rotatory dextroscoliosis and multilevel severe degenerative disc disease Grade 1 anterolisthesis at L3-4 due to degenerative change at the apophyseal joints Reviewed, dictated and finalized at location B. IMPRESSION: 40 degrees rotatory dextroscoliosis and multilevel severe degenerat rod disc disease Grade 1 anterolisthesis at L3-4 due to degenerative change at the apophyseal merlene ints
[2024-01-18 17:18] LABS: Basophils Percent Auto 0.4 % (0.2-1.2); Eosinophils Absolute Auto 0.1 K/mm3 (0-0.3); Eosinophils Percent Auto 1.7 % (0-4.4); Hematocrit 41.9 % (37.0-47.0); Immature Granulocyte Absolute 0.02 K/mm3 (0.00-0.031); Immature Granulocyte Percent A 0.3 % (0-0.5); Lymphocytes Absolute Auto 1.88 K/mm3 (0.9-3.2); Lymphocytes Percent Auto 26.4 % (18.3-44.2); Mean Corpuscular Hemoglobin 29.4 pg (26-34); Mean Corpuscular Volume 94.8 fl (80-100); Mean Platelet Volume 12.1 fl (7.4-10.4); Monocytes Absolute Auto 0.4 K/mm3 (0.1-0.6); Neutrophils Absolute Auto 4.6 K/mm3 (1.3-6.7); Neutrophils Percent Auto 65.2 % (45.5-73.1); Platelet Count Result 195 k/mm3 (150-375); Red Blood Count 4.42 M/mm3 (4.2-5.4); Red Cell Distribution Width 12.8 % (11.5-14.5); White Blood Count 7.1 K/mm3 (4.5-10.0)
[2024-01-18 17:42] LABS: MALB Creatinine Ratio 11.3 mg/g (0-30); Microalbumin Urine Random 14.5 mg/L (0-16.7)
[2024-01-18 20:34] LABS: Alanine Aminotransferase 14 U/L (6-35); Albumin Level 4.3 g/dL (3.5-5.1); Alkaline Phosphatase 109 U/L (38-126); Anion Gap 4 mmol/L (4-12); Aspartate Amino Transferase 19 U/L (14-36); Bilirubin,Total 0.5 mg/dL (0.2-1.3); Blood Urea Nitrogen 26 mg/dL (7-17); Calcium 10.3 mg/dL (8.4-10.2); Carbon Dioxide 28 mmol/L (22-30); Chloride 104 mmol/L (98-107); Estimated Glomerular Filt Rate > 60; Glucose 145 mg/dL (65-110); Potassium 4.3 mmol/L (3.4-5.0); Sodium 136 mmol/L (137-145)
[2024-01-18 21:46] LABS: Folic Acid > 20.0 ng/mL (2.76->20)
[2024-01-18 22:13] LABS: Vitamin D 25 Hydroxy 44.2 ng/mL
[2024-01-18 23:53] LABS: Hemoglobin A1C 5.9 % (<5.7)
== END 2024-01-18 15:52 | disposition home or self-care (01) ==
PROVIDERS: PCP Nurse Practitioner Family; Visit Provider Nurse Practitioner Family
DX: D64.9 Anemia, unspecified (principal); E11.9 Type 2 diabetes mellitus without complications; E53.8 Deficiency of other specified B group vitamins; E55.9 Vitamin D deficiency, unspecified; E78.5 Hyperlipidemia, unspecified; I10 Essential (primary) hypertension; G89.29 Other chronic pain; M25.552 Pain in left hip; M51.36 Other intervertebral disc degeneration, lumbar region
CPT/HCPCS: 36415; 72100; 73502; 80053; 82043; 82306; 82607; 82746; 83036; 85025

== ENCOUNTER 2024-04-09 14:07 | Outpatient (CLI) | payer OTHER, SELFPAY ==
[2024-04-09 14:43] LABS: Basophils Percent Auto 0.3 % (0.2-1.2); Eosinophils Absolute Auto 0.1 K/mm3 (0-0.3); Eosinophils Percent Auto 2.3 % (0-4.4); Hematocrit 37.9 % (37.0-47.0); Hemoglobin 12.4 g/dL (12.0-15.0); Immature Granulocyte Absolute 0.01 K/mm3 (0.00-0.031); Immature Granulocyte Percent A 0.3 % (0-0.5); Immature Platelet Fraction Pct 6.5 % (0.9-11.2); Lymphocytes Absolute Auto 1.19 K/mm3 (0.9-3.2); Lymphocytes Percent Auto 39.5 % (18.3-44.2); Mean Corpuscular HGB Conc 32.7 g/dl (32-36); Mean Corpuscular Hemoglobin 30.2 pg (26-34); Mean Corpuscular Volume 92.2 fl (80-100); Mean Platelet Volume 11.5 fl (7.4-10.4); Monocytes Absolute Auto 0.4 K/mm3 (0.1-0.6); Monocytes Percent Auto 14.6 % (2.6-8.5); Neutrophils Absolute Auto 1.3 K/mm3 (1.3-6.7); Platelet Count Result 126 k/mm3 (150-375); Red Blood Count 4.11 M/mm3 (4.2-5.4); Red Cell Distribution Width 13.3 % (11.5-14.5)
[2024-04-09 14:53] LABS: Alanine Aminotransferase 20 U/L (6-35); Albumin Level 4.3 g/dL (3.5-5.1); Alkaline Phosphatase 75 U/L (38-126); Anion Gap 9 mmol/L (4-12); Aspartate Amino Transferase 28 U/L (14-36); Bilirubin,Total 0.7 mg/dL (0.2-1.3); Blood Urea Nitrogen 13 mg/dL (7-17); Calcium 9.4 mg/dL (8.4-10.2); Carbon Dioxide 25 mmol/L (22-30); Chloride 109 mmol/L (98-107); Estimated Glomerular Filt Rate > 60; Glucose 100 mg/dL (65-110); Potassium 4.2 mmol/L (3.4-5.0); Sodium 143 mmol/L (137-145)
[2024-04-09 15:22] LABS: Thyroid Stimulating Hormone 0.786 uIU/mL (0.465-4.680)
[2024-04-09 17:58] LABS: Creatinine Urine 40.6 mg/dL
[2024-04-09 18:06] LABS: MALB Creatinine Ratio 39.4 mg/g (0-30)
[2024-04-09 18:41] LABS: Iron 39 ug/dL (37-170)
[2024-04-09 18:52] LABS: Percent Iron Saturation 11 % (20-50)
[2024-04-09 18:58] LABS: Free T4 Free Thyroxine 1.14 ng/mL (0.78-2.19)
[2024-04-09 19:04] LABS: Hemoglobin A1C 6.4 % (<5.7)
== END 2024-04-09 14:08 | disposition home or self-care (01) ==
LOC: ANHLAB 14:11
PROVIDERS: PCP Nurse Practitioner Family; Visit Provider Nurse Practitioner Family
DX: D64.9 Anemia, unspecified (principal); E55.9 Vitamin D deficiency, unspecified; E61.1 Iron deficiency; E78.2 Mixed hyperlipidemia; E78.5 Hyperlipidemia, unspecified; I10 Essential (primary) hypertension; Z79.4 Long term (current) use of insulin; E53.8 Deficiency of other specified B group vitamins; R10.9 Unspecified abdominal pain; R19.7 Diarrhea, unspecified; E11.40 Type 2 diabetes mellitus with diabetic neuropathy, unspecified
CPT/HCPCS: 36415; 80053; 82043; 82728; 83036; 83540; 83550; 84439; 84443; 85025; 85055

== ENCOUNTER 2024-05-27 12:58 | Emergency (ER) | payer OTHER, SELFPAY ==
--- NOTE | ~2024-05-27 | CT_ITS ---
EXAMINATION: CT brain wo con DATE: 05/27/2024 15:55 INDICATION: Right facial weakness. TECHNIQUE: Computed tomography (CT) of the head was performed without intravenous contrast. The mA wa s adjusted according to patient size. Iterative reconstruction technique was employed. The dose-lengt h product was 529.67 mGy-cm. COMPARISON: Head CT 11/17/2022 FINDINGS: There is no intracranial hemorrhage, acute infarction, or abnormal intracranial mass lesion . There are scattered areas of low attenuation in the cerebral white matter, which is within normal l imits for the patient's age. The ventricles are normal in size. There is mild mucosal thickening in t he ethmoid sinuses. The mastoid air cells are normal. IMPRESSION: 1. Normal aging brain. Reviewed, dictated and finalized at location E. IMPRESSION: 1. Normal aging brain.
[2024-05-27 13:02] VITALS: BP 160/61; PULSE 75; RESP 16; TEMP 36.6; O2SAT 98
[2024-05-27 15:04] VITALS: BP 177/79; PULSE 72; RESP 12; TEMP 36.6; O2SAT 99
[2024-05-27 15:14] VITALS: PULSE 74
--- NOTE | 2024-05-27 15:22 | ED.GENADULT ---
HPI - General Adult General Chief complaint: Unspecified Stated complaint: facial droop Time Seen by Provider: 05/27/24 14:55 History of Present Illness HPI narrative: This is a 78-year-old female with a past medical history significant for hypertension, hyperlipidemia, diabetes, neuropathy and OA. Today patient presents to the ED for right-sided facial droop. She states she noticed it when waking up approximately 36 hours prior. She has been having tearing and numbness to the area. No deficits in the extremities. Does not take any blood thinners. No trauma or injuries. She presently she is describing pain in the right side of her face, radiating down her jaw and in her right ear. She is unable to raise her eyebrows on the right side and has a deep droop on the right face. She is able tolerate p.o. intake but notices that on brushing teeth that she had some spillage of fluid out of her mouth on the right side. Patient thinks it could be Venegas's palsy however she does have significant risk factors for strokes with no history of stroke or TIA in the past. Denies any exposure to ticks or any recent travel. Has not received her herpes zoster vaccine but denies any rashes or complaints of any ear, nose or throat. Related Data Home Medications Medication Instructions Recorded Confirmed cholecalciferol (vitamin D3) 50 2,000 unit PO DAILY 09/20/19 04/09/24 mcg (2,000 unit) tablet Allergies Allergy/AdvReac Type Severity Reaction Status Date / Time BURT Inhibitors Allergy Mild cough Verified 02/20/24 13:07 MEPERIDINE HCL Allergy Mild BECOMES Uncoded 02/20/24 13:07 COMBATIVE Review of Systems Review of Systems: As reviewed above in the HPI [facility] Past Medical History Medical History Arthritis Benign essential HTN Breast screening 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 Closed fracture of right tibial plateau with routine healing Colon cancer screening Diabetes mellitus with diabetic neuropathy, with long-term current use of insulin Diabetic retinopathy associated with type 2 diabetes mellitus Dietary counseling and surveillance (01/09/18) DJD (degenerative joint disease), lumbosacral HSV (herpes simplex virus) infection HTN (hypertension) Hx of breast cancer Hypovitaminosis D Immunization counseling Left breast mass Left ventricular hypertrophy terminal computer operator (current) use of insulin MDD (major depressive disorder), recurrent episode, mild Mixed hyperlipidemia Mixed hyperlipidemia Mixed hyperlipidemia due to type 2 diabetes mellitus Postmenopause Right ear impacted cerumen Sleep disorder Sleep disorder Tibial plateau fracture, right Type 2 diabetes mellitus with hyperglycemia Surgical History Surgical History History of lumpectomy History of partial hysterectomy Family History Family History Mother Hypertension Patient's mother is Family history of arthritis Family history of malignant neoplasm Father Family history of liver disease Patient's father is Cerebrovascular accident, Onset Age: 68 Sibling Family history of malignant neoplasm, Onset Age: 60 Social History Social History Smoking status: Never smoker Second hand tobacco smoke exposure: No Alcohol intake: never Substance use: never Substance use type: does not use Do You Feel Safe in your Home?: Yes Lack of Transportation: No Lack of Food: Never True Current Housing: I Have Housing Concerned About Future Housing: No Difficulty Paying Gas/Electric Bills: No Difficulty Paying for Meds: YES Currently Unemployed: No Education: Bachelor's Degree Difficulty w/ Childcare or Family Care: No Living arrangements: with
[2024-05-27 16:04] VITALS: BP 149/75; PULSE 69; RESP 17; O2SAT 98
[2024-05-27] MEDS: predniSONE 20 MG TABLET 60 MG PO (16:04)
[2024-05-27] MEDS: ARTIFICIAL TEARS OPHTH SOLN 15 ML BOTTLE 1 DROP EACH EYE (16:06)
[2024-05-27 16:14] LABS: Basophils Percent Auto 0.3 % (0.2-1.2); Eosinophils Absolute Auto 0.1 K/mm3 (0-0.3); Eosinophils Percent Auto 1.6 % (0-4.4); Hemoglobin 13.3 g/dL (12.0-15.0); Immature Granulocyte Absolute 0.02 K/mm3 (0.00-0.031); Immature Granulocyte Percent A 0.3 % (0-0.5); Lymphocytes Absolute Auto 2.12 K/mm3 (0.9-3.2); Lymphocytes Percent Auto 32.9 % (18.3-44.2); Mean Corpuscular HGB Conc 32.4 g/dl (32-36); Mean Corpuscular Volume 92.3 fl (80-100); Mean Platelet Volume 11.7 fl (7.4-10.4); Monocytes Absolute Auto 0.5 K/mm3 (0.1-0.6); Monocytes Percent Auto 7.6 % (2.6-8.5); Neutrophils Absolute Auto 3.7 K/mm3 (1.3-6.7); Neutrophils Percent Auto 57.3 % (45.5-73.1); Platelet Count Result 183 k/mm3 (150-375); Red Blood Count 4.44 M/mm3 (4.2-5.4); Red Cell Distribution Width 13.3 % (11.5-14.5); White Blood Count 6.5 K/mm3 (4.5-10.0)
[2024-05-27 16:28] LABS: Anion Gap 11 mmol/L (4-12); Blood Urea Nitrogen 18 mg/dL (7-17); Carbon Dioxide 28 mmol/L (22-30); Chloride 102 mmol/L (98-107); Estimated CRCL calculation 57 ml/min; Estimated Glomerular Filt Rate > 60; Glucose 112 mg/dL (65-110); Potassium 4.6 mmol/L (3.4-5.0); Sodium 141 mmol/L (137-145)
[2024-05-27 16:48] VITALS: BP 130/82; PULSE 71; RESP 17; TEMP 36.3; O2SAT 97
== END 2024-05-27 16:54 | disposition home or self-care (01) ==
PROVIDERS: Emergency Provider Student in an Organized Health Care Education/Training Program; PCP Nurse Practitioner Family
DX: G51.0 Bell's palsy (principal); I10 Essential (primary) hypertension; E11.319 Type 2 diabetes mellitus with unspecified diabetic retinopathy without macular edema; E11.40 Type 2 diabetes mellitus with diabetic neuropathy, unspecified; E11.69 Type 2 diabetes mellitus with other specified complication; E78.2 Mixed hyperlipidemia; E55.9 Vitamin D deficiency, unspecified; M47.817 Spondylosis without myelopathy or radiculopathy, lumbosacral region; G47.9 Sleep disorder, unspecified; Z85.3 Personal history of malignant neoplasm of breast; Z90.711 Acquired absence of uterus with remaining cervical stump; Z79.84 Long term (current) use of oral hypoglycemic drugs; Z79.899 Other long term (current) drug therapy
CPT/HCPCS: 36415; 70450; 80048; 85025; 99284; A9270; J7512

== ENCOUNTER 2024-09-10 13:37 | Outpatient (CLI) | payer OTHER, SELFPAY ==
--- NOTE | ~2024-09-10 | XR_ITS ---
EXAMINATION: XR chest 2V Exam Date/Time: 09/10/2024 14:00 PATCHER HELPER HISTORY: R05.9 - Cough X3DYS, HX HTN Comparison: 10/29/2014. RESULT: Lines, tubes, and devices: None. Lungs and pleura: Clear. Cardiomediastinal silhouette: Stable. Other: No acute osseous or upper abdominal finding. IMPRESSION: No acute cardiopulmonary process. Reviewed, dictated and finalized at location K. HER HELPER
[2024-09-10 15:57] LABS: Influenza A QL RT-PCR Negative (Negative); Influenza B QL RT-PCR Negative (Negative); RSV RNA, RT-PCR Negative (Negative); SARS-CoV-2 RNA PCR Positive (Negative)
== END 2024-09-10 13:38 | disposition home or self-care (01) ==
PROVIDERS: PCP Nurse Practitioner Family; Visit Provider Nurse Practitioner Family
DX: R50.9 Fever, unspecified (principal)
CPT/HCPCS: 71046; 87637

== ENCOUNTER 2024-10-12 12:24 | Outpatient (CLI) | payer OTHER, SELFPAY ==
[2024-10-12 13:02] LABS: Basophils Percent Auto 0.5 % (0.2-1.2); Eosinophils Absolute Auto 0.2 K/mm3 (0-0.3); Eosinophils Percent Auto 2.6 % (0-4.4); Hematocrit 40.2 % (37.0-47.0); Hemoglobin 13.2 g/dL (12.0-15.0); Immature Granulocyte Absolute 0.02 K/mm3 (0.00-0.031); Immature Granulocyte Percent A 0.3 % (0-0.5); Lymphocytes Absolute Auto 1.95 K/mm3 (0.9-3.2); Lymphocytes Percent Auto 31.9 % (18.3-44.2); Mean Corpuscular HGB Conc 32.8 g/dl (32-36); Mean Corpuscular Hemoglobin 30.2 pg (26-34); Monocytes Absolute Auto 0.4 K/mm3 (0.1-0.6); Monocytes Percent Auto 6.7 % (2.6-8.5); Neutrophils Absolute Auto 3.6 K/mm3 (1.3-6.7); Platelet Count Result 180 k/mm3 (150-375); Red Blood Count 4.37 M/mm3 (4.2-5.4); Red Cell Distribution Width 13.2 % (11.5-14.5); White Blood Count 6.1 K/mm3 (4.5-10.0)
[2024-10-12 13:13] LABS: Alanine Aminotransferase 16 U/L (6-35); Albumin Level 4.3 g/dL (3.5-5.1); Alkaline Phosphatase 78 U/L (38-126); Anion Gap 1 mmol/L (4-12); Aspartate Amino Transferase 20 U/L (14-36); Bilirubin,Total 0.6 mg/dL (0.2-1.3); Blood Urea Nitrogen 16 mg/dL (7-17); Carbon Dioxide 29 mmol/L (22-30); Chloride 108 mmol/L (98-107); Cholesterol 150 mg/dL (0-200); Estimated Glomerular Filt Rate > 60; Glucose 116 mg/dL (65-110); HDL Direct 63 mg/dL; Potassium 4.5 mmol/L (3.4-5.0); Sodium 138 mmol/L (137-145); Triglycerides 163 mg/dL (<150)
[2024-10-12 13:23] LABS: LDL Cholesterol Direct 59 mg/dL; NT Pro B Type Natriuretic Pept 144 pg/mL (19.9-100)
[2024-10-12 14:04] LABS: Hemoglobin A1C 6.9 % (<5.7)
== END 2024-10-12 12:25 | disposition home or self-care (01) ==
PROVIDERS: PCP Nurse Practitioner Family; Visit Provider Nurse Practitioner Family
DX: R06.02 Shortness of breath (principal); E11.40 Type 2 diabetes mellitus with diabetic neuropathy, unspecified; Z79.4 Long term (current) use of insulin; E11.9 Type 2 diabetes mellitus without complications; I10 Essential (primary) hypertension; E61.1 Iron deficiency
CPT/HCPCS: 36415; 80053; 80061; 83036; 83880; 85025

== ENCOUNTER 2025-02-06 14:31 | Emergency (ER) | payer OTHER, SELFPAY ==
--- NOTE | ~2025-02-06 | CT_ITS ---
History: Back pain PROCEDURE: CT lumbar spine without intravenous contrast. COMPARISON: Reference is made to a plain film evaluation of the lumbar spine dated 01/18/2024 TECHNIQUE: Multiple contiguous axial images of the lumbar spine were performed without the administration of int ravenous contrast. DLP: 1056 mGy-cm FINDINGS: 46 degrees of dextroscoliotic curvature of the lumbar spine is present, increased from previous plain film examination. Diffuse degenerative disease is identified. Most prominent disease is as follows: Left paracentral disc protrusion at the level of L2/L3 with narrowing of the left neural foramen. Broad-based disc protrusion at the level of L4/L5, with narrowing of the spinal canal and bilateral n eural foramen. No acute compression fractures are present. No soft tissue abnormality is noted. Impression: Severe degenerative disease (as detailed above) without acute compression fracture. No soft tissue abnormality is appreciated to account for patient's recent symptoms. Reviewed, dictated and finalized at location A. Impression: Severe degenerative disease (as detailed above) without acute compression fract ure. No soft tissue abnormality is appreciated to account for patient's recent sympt oms.
[2025-02-06 14:32] VITALS: BP 170/107; PULSE 80; RESP 18; TEMP 36.6; O2SAT 99
[2025-02-06 15:19] VITALS: BP 170/83; PULSE 76; RESP 20; O2SAT 98
--- NOTE | 2025-02-06 16:11 | PC.NURSE ---
assisted patient to commode to urinate. patient back in bed and hooked back up to monitor with call light in reach. given warm blanket for comfort
--- OUTSIDE RECORDS SUMMARY | 2025-02-06 16:34 | XMS_ITS | Referral Summary ---
Author Organization [facility] [place] [address] Address [address] [place] [address] Care Team Providers Care Laboratory Tech Name Role Phone Snow Jacobson MD Primary Care Provider Allergies Active Allergy Reactions Criticality Noted Date Comments Diego Inhibitors Unknown 09/25/2019 Meperidine Mental status changes Low Reaction: Mental Status Changes, , Active Problems Problem Noted Date Diagnosed Date Atopic rhinitis 03/02/2014 Overview (01/19/2017): Allergic rhinitis Benign hypertension 03/02/2014 Overview (01/20/2017): BENIGN HYPERTENSION Type II diabetes mellitus uncontrolled 4 Overview (01/20/2017): Diabetes mellitus type II, uncontrolled Thyroid nodule 03/02/2014 Overview (01/20/2017): Thyroid nodule Family history of skin cancer 03/02/2014 Overview (01/20/2017): Family history of skin cancer Hyperlipidemia 03/02/2014 Overview (01/20/2017): Hyperlipidemia LDL goal < 100 Abnormal mammogram 08/12/2010 Immunizations Immunization Administration Dates Next Due Influenza, Split 08/13/2010 Pneumococcal Polysaccharide PPV23 10/17/2008 Tdap 08/13/2010 Social History Tobacco Use Types Packs/Day Years Used Date Smoking Tobacco: Never Alcohol Use Standard Drinks/Week Comments No 0 (1 standard drink = 0.6 oz pur e alcohol) Comments Unknown Sex and Gender Information Value Date Recorded Sex Assigned at Not on file Legal 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 Gender Identity Not on file Sexual Orientation Not on file Last Filed Vital Signs Vital Sign Reading Time Taken Comments Blood Pressure 165/83 07/16/2022 8:47 AM CDT Pulse 66 07/16/2022 8:47 AM CDT Temperature - - Respiratory Rate - - Oxygen Saturation - - Inhaled Oxygen Concentration - - Weight 94.8 kg (209 lb) 08/22/2018 9:19 AM GLAZE SPRAYER Height 172.7 cm (5' 8 ) 08/22/2018 9:19 AM GLAZE SPRAYER Body Mass Index 31.78 08/22/2018 9:19 AM GLAZE SPRAYER Plan of Treatment Not on file Insurance MEDICARE [facility] Care Teams Laboratory Tech Relationship Specialty Start Date End Date Snow Jacobson MD [address] [facility] [address] [place] [address] PCP - General Family Medicine 08/22/18
--- OUTSIDE RECORDS SUMMARY | 2025-02-06 16:34 | XMS_ITS | Clinical Summary ---
Author Organization [facility] Address [address] [place] [address] Care Team Providers Care Manager Of Warehouse Name Role Phone Jens Mcguire MD Primary Care Provider [phone] Allergies Active Allergy Reactions Criticality Noted Date Comments Diego Inhibitors Unknown 09/25/2019 Meperidine Other (see comment) Low 08/23/2022 Reaction: Mental Status Changes, , Medications gabapentin (NEURONTIN) 300 MG capsule Take 300 mg by mouth nightly at bedtime. 08/10/2022 Active escitalopram (LEXAPRO) 10 MG tablet Take 10 mg by mouth daily. 05/28/2022 Active FARXIGA 10 MG Tab daily. 08/15/2022 Active metFORMIN (GLUCOPHAGE) 1000 MG tablet Take 1,000 mg by mouth 2 (two) times daily. 05/31/2022 Active RYBELSUS 7 MG Tab Take 1 tablet by mouth daily. 08/11/2022 Active atorvastatin (LIPITOR) 20 MG tablet Take 20 mg by mouth daily. 07/30/2022 Active olmesartan 40 MG Tab Take 1 tablet by mouth daily. 08/04/2022 Active amLODIPine (NORVASC) 5 MG tablet Take 5 mg by mouth daily. 08/04/2022 Active Active Problems Problem Noted Date Diagnosed Date Uncontrolled type 2 diabetes mellitus with hyperglycemia ([facility]/H[facility]) 03/02/2014 Overview (02/22/2023): Diabetes mellitus type II, uncontrolled Atopic rhinitis 03/02/2014 Overview (02/22/2023): Allergic rhinitis Benign hypertension 03/02/2014 Overview (02/22/2023): BENIGN HYPERTENSION Hyperlipidemia 03/02/2014 Overview (02/22/2023): Hyperlipidemia LDL goal < 100 Thyroid nodule 03/02/2014 Overview (02/22/2023): Thyroid nodule Abnormal mammogram 08/12/2010 Family History Medical History Relation Comments Cancer Brother 1 Cancer Brother 2 Cancer Brother 3 skin cancer Cancer Father intestinal Cancer Mother pancreatic Cancer Sister osteocarcinomia to thigh Relation Status Comments Brother 1 Brother 2 Brother 3 Alive Father Mother Sister Social History Tobacco Use Types Packs/Day Years Used Date Smoking Tobacco: Never Smokeless Tobacco: Never Alcohol Use Standard Drinks/Week Comments Not Currently 0 (1 standard drink = 0.6 oz pur e alcohol) PHQ-2 Answer Date Recorded PHQ-2 Score - If the patient scores above 3, please move on to questions 3-9 1 08/23/2022 Comments Unknown Sex and Gender Information Value Date Recorded Sex Assigned at Not on file Legal Sex Female 11:15 AM CDT Gender Identity Not on file Sexual Orientation Not on file Last Filed Vital Signs Vital Sign Reading Time Taken Comments Blood Pressure 153/89 08/23/2022 1:05 PM LOOM TUNER Pulse 78 08/23/2022 1:05 PM LOOM TUNER Temperature 37 C (98.6 F) 08/23/2022 1:05 PM LOOM TUNER Respiratory Rate 20 08/23/2022 1:05 PM LOOM TUNER Oxygen Saturation 95% 08/23/2022 1:05 PM LOOM TUNER Inhaled Oxygen Concentration - - Weight 85.4 kg (188 lb 3.2 oz) 08/23/2022 1:05 P M LOOM TUNER Height 171.5 cm (5' 7.5 ) 08/23/2022 1:05 PM LOOM TUNER Body Mass Index 29.04 08/23/2022 1:05 PM LOOM TUNER Plan of Treatment Health Maintenance Due Date Last Done Comments Kidney Health Evaluation 1945 Hemoglobin A1C 1946 Lipid Panel 1946 Diabetes: Retinopathy Eye Exam 1964 Hepatitis C 1964 Zoster Vaccines (1 of 2) 1996 Pneumococcal Vaccine: 50+ Years (2 of 2 - PCV) 10/17/2009 10/17/2008 Annual Medicare Wellness Visit 2011 Dexa Scan (General) 2011 DTaP, Tdap and Td Vaccines ( 2 - Td or Tdap) 08/13/2020 08/13/2010 RSV Immunization or 60+ Years (1 - 1-dose 75+ series) 2021 COVID-19 Vaccine (4 - 2023-2 5 season) 2024 07/12/2021, 12/17/2020, 11/19/2020 Meningococcal B Vaccine Aged Out No l onger eligible based on patient's age to complete this topic Meningococcal Vaccine Aged Out No gilberto guilherme eligible based on patient's age to complete this topic RSV Immunizations Under 20 Months Aged Out No longer eligible b ased on patient's age to complete this topic Insurance [employer] Care Teams Manager Of Warehouse Relationship Specialty Start Date End Date Jens Mcguire MD [address] [place] [address] PCP - General INTERNAL MEDICINE 05/11/22
--- OUTSIDE RECORDS SUMMARY | 2025-02-06 16:34 | XMS_ITS | Clinical Summary ---
Author Organization [facility] [address] Address [address] [place] [address] Care Team Providers Care Therapy Aide Name Role Phone Snow Jacobson MD Primary [...] 08/13/2010 Pneumococcal Polysaccharide PPV23 10/17/2008 Tdap 08/13/2010 Surgical History Surgery Date Site/Laterality Comments OTHER SURGICAL HISTORY Cancer, uterine: Hysterectomy OTHER SURGICAL HISTORY Goiter: FNA, nodular hyperpalsia BREAST LUMPECTOMY left breast lumpectomy Medical History Medical History Date Comments Malignant neoplasm of uterus (HCC) 1984 Cancer, uterine Hx Other Medical 2010 Goiter Family History Medical History Relation Name Comments Lung cancer Brother 3 Cancer -lung; C ause of : Cancer -lung Melanoma Brother 3 Cancer -melanom a; Cause of : Cancer -melanoma Liver cancer Father 2 Cancer -liver; Stroke Father 2 Stroke; Cause o f : Stroke Coronary artery disease Mother Luisa nary artery disease; Hypertension Mother Hypertension; Pancreatic cancer Mother Cancer -pa ncreatic; Other Other Family history of thalassemia; Bladder Cancer Sister Cancer -bladd er; Lymphoma Sister Cancer -lymphom a; Relation Name Status Comments Brother 1 (Age 58) Brother 2 (Age 63) Brother 3 Father 1 (Age 69) Father 2 Mother Other Sister Social History Tobacco Use Types Packs/Day Years Used Date Smoking Tobacco: Never Alcohol Use Standard Drinks/Week Comments No 0 (1 standard drink = 0.6 oz pur e alcohol) Comments Unknown Sex and Gender Information Value Date Recorded Sex Assigned at Not on file Legal Sex Female 11:58 PM DUCT MAKER Gender Identity Not on file Sexual Orientation Not on file Obstetrics History Last Filed Vital Signs Vital Sign Reading Time Taken Comments Blood Pressure 165/83 07/16/2022 8:47 AM CDT Pulse 66 07/16/2022 8:47 AM CDT Temperature - - Respiratory Rate - - Oxygen Saturation - - Inhaled Oxygen Concentration - - Weight 94.8 kg (209 lb) 08/22/2018 9:19 AM DUCT MAKER Height 172.7 cm (5' 8 ) 08/22/2018 9:19 AM DUCT MAKER Body Mass Index 31.78 08/22/2018 9:19 AM DUCT MAKER Plan of Treatment Health Maintenance Due Date Last Done Comments Depression Screening 1945 Fall Risk Assessment 1945 Hepatitis C Screening 1945 Osteoporosis Screening-Bone Density Scan 1946 Hepatitis B Screening 1964 Zoster Vaccine (1 of 2) 1996 Pneumococcal vaccine 65+ (2 of 2 - PCV) 10/17/2009 0 10/17/2008 Well Visit 65+ 2011 DTaP/Tdap/Td Vaccine (2 - Td or Tdap) 08/13/2020 Influenza Vaccine (#1) 2024 09/10/2019, 2009 Insurance MEDICARE RAILROAD [facility] [address] [address] Care Teams Therapy Aide Relationship Specialty Start Date End Date Snow Jacobson MD [address] [facility] [address] [place] [address] PCP - General Family Medicine 08/22/18
[2025-02-06 16:41] VITALS: BP 134/84; PULSE 63; RESP 17; O2SAT 94
[2025-02-06] MEDS: ACETAMINOPHEN 500 MG TABLET 1000 MG PO (16:50)
[2025-02-06] MEDS: diazePAM INJ (*CRX) 10 MG/2 ML SYRINGE 5 MG IM (16:51)
[2025-02-06] MEDS: IBUPROFEN 600 MG TABLET PO (17:14)
[2025-02-06] MEDS: predniSONE 20 MG TABLET 60 MG PO (17:14)
[2025-02-06 17:17] VITALS: BP 165/78; PULSE 74; RESP 20; O2SAT 94
--- NOTE | 2025-02-06 17:19 | ED.BACK ---
HPI - Back Pain/Injury General Chief Complaint: Back Pain/Injury Stated Complaint: back pain Time Seen by Provider: 02/06/25 16:18 Source: patient Mode of arrival: ambulatory Limitations: no limitations History of Present Illness HPI Narrative: This is a 79 year old female that presents to the ER for left sided low back pain. Reports she has trouble with sciatica. She has been doing back injections with interventional pain consultants due to this. Reports she had one injection at the end of last year which did help her. She received an additional injection a couple of weeks ago and her pain has been worse since. Reports the pain radiates into the left hip and down into the leg. Reports muscle spasm. Denies saddle anesthesia, bowel/bladder incontinence. Related Data Home Medications ?Medication ?Instructions ?Recorded ?Confirmed ?Last Taken ?Type cholecalciferol (vitamin D3) 50 2,000 unit PO DAILY 09/20/19 10/15/24 Unknown History mcg (2,000 unit) tablet ferrous sulfate 325 mg (65 mg 325 mg PO DAILY 07/04/24 10/15/24 Unknown History iron) tablet,delayed release vitamin B complex 1 cap PO DAILY 10/15/24 10/15/24 Unknown History Allergies Allergy/AdvReac Type Severity Reaction Status Date / Time BURT Inhibitors Allergy Mild cough Verified 02/06/25 15:27 MEPERIDINE HCL Allergy Mild BECOMES Uncoded 02/06/25 15:27 COMBATIVE Review of Systems Review of Systems: CONSTITUTIONAL: Denies fever SKIN: Denies rash MUSCULOSKELETAL: Reports back pain, joint pain, and myalgia. NEUROLOGIC: Denies numbness, or weakness. 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 Left breast mass Immunization counseling Hx of breast cancer HSV (herpes simplex virus) infection DJD (degenerative joint disease), lumbosacral Dietary counseling and surveillance (01/09/18) Colon cancer screening Closed fracture of right tibial plateau with routine healing 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 Breast screening Benign essential HTN Arthritis Tibial plateau fracture, right Diabetic retinopathy associated with type 2 diabetes mellitus Left ventricular hypertrophy Sleep disorder Mixed hyperlipidemia HTN (hypertension) Diabetes mellitus with diabetic neuropathy, with long-term current use of insulin Surgical History Surgical History (Reviewed 10/15/24 @ 14:14 by Stehpenie Mcintosh [facility]) History of lumpectomy History of partial hysterectomy Family History Family History Mother Hypertension Patient's mother is Family history of arthritis Family history of malignant neoplasm Father Family history of liver disease Patient's father is Cerebrovascular accident, Onset Age: 68 Sibling Family history of malignant neoplasm, Onset Age: 60 Social History Social History (Reviewed 10/15/24 @ 14:14 by Stephenie Mcintosh [facility]) Smoking status: Never smoker Second hand tobacco smoke exposure: No Alcohol intake: never Substance use: never Substance use type: does not use Do You Feel Safe in your Home?: Yes Lack of Transportation: No Lack of Food: Never True Current Housing: I Have Housing Concerned About Future Housing: No Difficulty Paying Gas/Electric Bills: No Difficulty Paying for Meds: YES Currently Unemployed: No Education: Bachelor's Degree Difficulty w/ Childcare or Family Care: No Living arrangements: with family Occupation/Education: retired Gender identity (if verbalized by the patient): Female Sexual Orientation (if Verbalized by the Patient): Straight or Heterosexual Spiritual care concerns: No Agree to blood products: Yes Exam Narrative: GENERAL: Elderly, well-nourished, and in no acute distress. HEAD: Normocephalic, atraumatic. EYES: EOMI. CHEST: Clear to auscultation. No respiratory distress. No wheezes rales or rhonchi HEART: Regular rate and rhythm. No murmur heard. Normal peripheral pulses. EXTREMITIES: Normal range of motion. No edema. Strength equal in bilateral lower extremities (5/5). Normal DP pulses SKIN: Warm, dry, no rash. NEURO: No focal deficits. Alert and oriented x3. Normal gait PSYCH: Anxious, tearful Course Course Emergency Course: Patient updated on her workup and agrees with plan of care Vital Signs Vital signs: Vital Signs Temperature 97.8 F 02/06/25 14:32 Pulse Rate 80 02/06/25 14:32 Respiratory Rate 18 02/06/25 14:32 Blood Pressure 170/107 H 02/06/25 14:32 Pulse Oximetry 99 02/06/25 14:32 Oxygen Delivery Room Air 02/06/25 14:32 Temperature 97.8 F 02/06/25 14:32 Pulse Rate 70 02/06/25 19:05 Respiratory Rate 18 02/06/25 19:05 Blood Pressure 176/76 H 02/06/25 19:05 Pulse Oximetry 94 02/06/25 19:05 Oxygen Delivery Room Air 02/06/25 15:19 MDM - Back Pain/Injury MDM Narrative Medical decision making narrative: Patient presents the emergency department for acute on chronic low back pain. She is afebrile and non toxic appearing. Her vitals are stable. She is neurologically intact. CT lumbar spine shows severe degenerative disease without acute findings. Patient given Tylenol, anti-inflammatory, muscle relaxer, lidocaine patch. Updated on her workup and agrees with plan of care. She will be given follow-up with neuro surgery. She was given warnings to return to the ER Differential Diagnosis Differential diagnosis: Likely sciatica, strain of lumbar region and other (Degenerative disc disease, chronic back pain) Imaging Data Radiologist's impression: ITS Impressions Lumbar Spine CT 02/06/25 17:03 Impression: Severe degenerative disease (as detailed above) without acute compression fracture. No soft tissue abnormality is appreciated to account for patient's recent symptoms. Critical Care Time Critical Care Time Critical Care Time: No Discharge Plan Discharge Clinical Impression: Sciatica Qualifiers: Laterality: left Qualified Code(s): M54.32 - Sciatica, left side Patient Disposition: Home Condition: Stable Instructions: Sciatica (ED) Additional Instructions: Return to the ER if you experience weakness, numbness, bowel/bladder incontinence, or any other symptoms that are concerning to you Rest, use ice/heat, take anti-inflammatories (Aleve, Ibuprofen, Naproxen, etc) or Tylenol as needed for pain as well as muscle relaxer (Flexeril) as needed for pain. Muscle relaxers can make you drowsy, do not drive if you take this. Take steroid as prescribed. Lidocaine patch to the area of pain as needed Follow up with your primary care doctor and neurosurgery Patient Language: Syrian Prescriptions: New prednisone 20 mg tablet 40 mg PO DAILY 4 Days Qty: 8 0RF lidocaine 5 % adhesive patch,medicated 1 patch topical DAILY Qty: 15 0RF Rx Instructions: leave on most painful area for up to 12 hrs cyclobenzaprine 10 mg tablet 10 mg PO BID PRN (Reason: muscle spasm) Qty: 14 0RF No Action cholecalciferol (vitamin D3) 2,000 unit tablet 2,000 unit PO DAILY ferrous sulfate 325 mg (65 mg iron) tablet,delayed release (DR/EC) 325 mg PO DAILY Rybelsus 14 mg tablet See Rx Instructions .ROUTE .COMPLEX Qty: 30 5RF Dose Instruction: TAKE 1 TABLET BY MOUTH EVERY DAY Rx Instructions: TAKE 1 TABLET BY MOUTH EVERY DAY vitamin B complex Capsule 1 cap PO DAILY gabapentin 300 mg capsule See Rx Instructions PO BID Qty: 270 1RF Rx Instructions: 300 mg in the am and 600mg at night. azithromycin 250 mg tablet See Rx Instructions PO .COMPLEX Qty: 6 0RF Rx Instructions: For 250 mg dose pack: take 500 mg today (day 1), then 250 mg for 4 days (days 2-5) PO prednisone 20 mg tablet 40 mg PO DAILY Qty: 10 0RF omega-3 acid ethyl esters [Lovaza] 1 gram capsule 2 cap PO BID Qty: 360 1RF ondansetron 4 mg tablet,disintegrating 4 mg PO Q8H PRN (Reason: nausea and vomiting) Qty: 14 0RF artifi.tears(hypromellose)(PF) 1.7 % drops with applicator 1 drp RIGHT EYE Q1H PRN (Reason: dry eyes) Qty: 12 0RF Rx Instructions: while awake; not to exceed 16 doses per 24 hour period acetaminophen [Tylenol Extra Strength] 500 mg tablet 1,000 mg PO Q6H PRN (Reason: pain) Qty: 30 0RF omeprazole 40 mg capsule,delayed release(DR/EC) 40 mg PO DAILY Qty: 30 2RF (DME) Comfort Touch Ult Thin Lancets 31 gauge misc See Rx Instructions .Route Qty: 100 0RF Rx Instructions: check blood sugar 2xdaily (DME) blood-glucose meter [Contour Next EZ Meter] Kit See Rx Instructions .Route Qty: 1 0RF Rx Instructions: test blood sugar 2xdaily (DME) Contour Next Test Strips Strip See Rx Instructions .Route Qty: 100 0RF Rx Instructions: test blood sugar 2xdaily metformin 1,000 mg tablet 1,000 mg PO DAILY Qty: 180 1RF atorvastatin 20 mg tablet See Rx Instructions .ROUTE .COMPLEX Qty: 90 1RF Dose Instruction: TAKE 1 TABLET BY MOUTH EVERY DAY Rx Instructions: TAKE 1 TABLET BY MOUTH EVERY DAY amlodipine 5 mg tablet See Rx Instructions .ROUTE .COMPLEX Qty: 90 1RF Dose Instruction: 5 MG ORALLY DAILY Rx Instructions: 5 MG ORALLY DAILY olmesartan 40 mg tablet See Rx Instructions .ROUTE .COMPLEX Qty: 90 1RF Dose Instruction: TAKE 1 TABLET BY MOUTH EVERY DAY Rx Instructions: TAKE 1 TABLET BY MOUTH EVERY DAY albuterol sulfate 90 mcg/actuation HFA aerosol inhaler 2 inh inhalation Q4H PRN (Reason: shortness of breath or wheezing) Qty: 8.5 0RF trazodone 50 mg tablet See Rx Instructions .ROUTE .COMPLEX Qty: 90 1RF Dose Instruction: TAKE 1/2 TO 1 TABLET BY MOUTH AT BEDTIME Rx Instructions: TAKE 1/2 TO 1 TABLET BY MOUTH AT BEDTIME Follow-up/Referrals: Shashank Mesa MD [Physician] - Maryjo Wilson APRN [Primary Care Provider] -
--- OUTSIDE RECORDS SUMMARY | 2025-02-06 17:51 | XMS_ITS | Referral Summary ---
Author Organization [facility] [address] Address [address] [place] [address] Care Team Providers Care Superintendent Maintenance Airports Name Role Phone Snow Jacobson MD Primary [...] on file Legal Sex Female 11:58 PM COGNOS DEVELOPER Gender Identity Not on file Sexual Orientation Not on file Last Filed Vital Signs Vital Sign Reading Time Taken Comments Blood Pressure 165/83 07/16/2022 8:47 AM CDT Pulse 66 07/16/2022 8:47 AM CDT Temperature - - Respiratory Rate - - Oxygen Saturation - - Inhaled Oxygen Concentration - - Weight 94.8 kg (209 lb) 08/22/2018 9:19 AM COGNOS DEVELOPER Height 172.7 cm (5' 8 ) 08/22/2018 9:19 AM COGNOS DEVELOPER Body Mass Index 31.78 08/22/2018 9:19 AM COGNOS DEVELOPER Plan of Treatment Not on file Insurance MEDICARE [employer] Care Teams Superintendent Maintenance Airports Relationship Specialty Start Date End Date Snow Jacobson MD [address] [facility] [address] [place] [address] PCP - General Family Medicine 08/22/18
--- OUTSIDE RECORDS SUMMARY | 2025-02-06 17:51 | XMS_ITS | Clinical Summary ---
Author Organization [facility] [address] Address [address] [place] [address] Care Team Providers Care Restaurant Hourly Manager Name Role Phone Snow Jacobson MD Primary [...] on file Legal Sex Female 11:58 PM LABEL CODER Gender Identity Not on file Sexual Orientation Not on file Obstetrics History Last Filed Vital Signs Vital Sign Reading Time Taken Comments Blood Pressure 165/83 07/16/2022 8:47 AM CDT Pulse 66 07/16/2022 8:47 AM CDT Temperature - - Respiratory Rate - - Oxygen Saturation - - Inhaled Oxygen Concentration - - Weight 94.8 kg (209 lb) 08/22/2018 9:19 AM LABEL CODER Height 172.7 cm (5' 8 ) 08/22/2018 9:19 AM LABEL CODER Body Mass Index 31.78 08/22/2018 9:19 AM LABEL CODER Plan of Treatment Health Maintenance Due Date [...] 09/10/2019, 2009 Insurance MEDICARE RAILROAD [facility] [place] [address] [place] [address] Care Teams Restaurant Hourly Manager Relationship Specialty Start Date End Date Snow Jacobson MD [address] [facility] [address] [place] [address] PCP - General Family Medicine 08/22/18
[2025-02-06] MEDS: LIDOCAINE 5% PATCH 1 PATCH TRANSDERM (17:54)
[2025-02-06 19:05] VITALS: BP 176/76; PULSE 70; RESP 18; O2SAT 94
[2025-02-06 19:40] VITALS: BP 166/75; PULSE 82; RESP 17; TEMP 36.6; O2SAT 95
== END 2025-02-06 19:42 | disposition home or self-care (01) ==
PROVIDERS: Emergency Provider Physician Assistant; PCP Nurse Practitioner Family
DX: M54.32 Sciatica, left side (principal); E78.2 Mixed hyperlipidemia; E11.9 Type 2 diabetes mellitus without complications; Z79.4 Long term (current) use of insulin; Z85.3 Personal history of malignant neoplasm of breast; I10 Essential (primary) hypertension
CPT/HCPCS: 72131; 96372; 99284; A9270; J3360; J7512

== ENCOUNTER 2025-03-22 13:56 | Outpatient (CLI) | payer OTHER, SELFPAY ==
[2025-03-22 15:15] LABS: Creatinine Urine 180.3 mg/dL
[2025-03-22 15:15] LABS: Basophils Percent Auto 0.5 % (0.2-1.2); Eosinophils Absolute Auto 0.1 K/mm3 (0-0.3); Eosinophils Percent Auto 1.6 % (0-4.4); Hematocrit 40.6 % (37.0-47.0); Hemoglobin 13.5 g/dL (12.0-15.0); Immature Granulocyte Absolute 0.02 K/mm3 (0.00-0.031); Immature Granulocyte Percent A 0.3 % (0-0.5); Lymphocytes Absolute Auto 2.13 K/mm3 (0.9-3.2); Lymphocytes Percent Auto 34.4 % (18.3-44.2); Mean Corpuscular HGB Conc 33.3 g/dl (32-36); Mean Corpuscular Hemoglobin 30.3 pg (26-34); Mean Platelet Volume 12.3 fl (7.4-10.4); Monocytes Absolute Auto 0.5 K/mm3 (0.1-0.6); Monocytes Percent Auto 8.1 % (2.6-8.5); Neutrophils Absolute Auto 3.4 K/mm3 (1.3-6.7); Neutrophils Percent Auto 55.1 % (45.5-73.1); Platelet Count Result 184 k/mm3 (150-375); Red Blood Count 4.46 M/mm3 (4.2-5.4); White Blood Count 6.2 K/mm3 (4.5-10.0)
[2025-03-22 15:19] LABS: MALB Creatinine Ratio 31.7 mg/g (0-30); Microalbumin Urine Random 57.1 mg/L (0-16.7)
[2025-03-22 15:31] LABS: Alanine Aminotransferase 15 U/L (6-35); Albumin Level 4.6 g/dL (3.5-5.1); Alkaline Phosphatase 71 U/L (38-126); Anion Gap 9 mmol/L (4-12); Aspartate Amino Transferase 22 U/L (14-36); Bilirubin,Total 0.8 mg/dL (0.2-1.3); Blood Urea Nitrogen 17 mg/dL (7-17); Calcium 10.5 mg/dL (8.4-10.2); Carbon Dioxide 26 mmol/L (22-30); Chloride 103 mmol/L (98-107); Estimated Glomerular Filt Rate > 60; Glucose 153 mg/dL (65-110); Sodium 138 mmol/L (137-145); Total Protein 7.3 g/dL (6.3-8.2)
[2025-03-22 15:40] LABS: Hemoglobin A1C 7.8 % (<5.7)
[2025-03-23 17:33] LABS: Amphetamines NEGATIVE ng/mL (<500); Barbiturates NEGATIVE ng/mL (<300); Benzodiazepines NEGATIVE ng/mL (<100); Cocaine Metabolite NEGATIVE ng/mL (<150); Marijuana Metabolite NEGATIVE ng/mL (<20); Methadone Metabolite NEGATIVE ng/mL (<100); Opiates NEGATIVE ng/mL (<100); Oxidant NEGATIVE mcg/mL (<200); PCP NEGATIVE ng/mL (<25); pH 5.7 (4.5-9.0)
== END 2025-03-22 13:57 | disposition home or self-care (01) ==
PROVIDERS: Visit Provider Nurse Practitioner Family
DX: E11.9 Type 2 diabetes mellitus without complications (principal); I10 Essential (primary) hypertension; I51.9 Heart disease, unspecified; E78.2 Mixed hyperlipidemia; E55.9 Vitamin D deficiency, unspecified; E53.8 Deficiency of other specified B group vitamins; H35.3290 Exudative age-related macular degeneration, unspecified eye, stage unspecified; D64.9 Anemia, unspecified; M25.552 Pain in left hip; G89.29 Other chronic pain; G62.9 Polyneuropathy, unspecified; Z79.4 Long term (current) use of insulin
CPT/HCPCS: 36415; 80053; 80307; 82043; 83036; 85025

== ENCOUNTER 2025-03-27 13:46 | Outpatient (CLI) | payer OTHER, SELFPAY ==
--- NOTE | ~2025-03-27 | MM_ITS ---
EXAMINATION: MM screening rosetta BI w yumiko HISTORY: Screening TECHNIQUE: Craniocaudal and mediolateral oblique 3-D tomosynthesis images were obtained and synthetic 2-D images were generated. CAD analysis was submitted and interpreted. COMPARISON: Comparison to multiple prior studies sequentially, with oldest reviewed study dated 03/2017. BREAST PARENCHYMAL COMPOSITION: Not dense: There are scattered areas of fibroglandular density. FINDINGS: There is a focal asymmetry in the upper outer quadrant of the right breast, slightly more p rominent than on prior studies. Left breast is stable without evidence for malignancy. IMPRESSION: 1. Developing right breast asymmetry, upper outer quadrant. 2. Additional mammographic views and possible breast ultrasound are recommended. BI-RADS Category 0: Incomplete: Needs additional imaging evaluation. Reviewed, dictated and finalized at location B. IMPRESSION: 1. Developing right breast asymmetry, upper outer quadrant. 2. Additional mammographic views and possible breast ultrasound are recommended . BI-RADS Category 0: Incomplete: Needs additional imaging evaluation.
== END 2025-03-27 13:47 | disposition home or self-care (01) ==
LOC: ANHIMG 13:49
PROVIDERS: PCP Nurse Practitioner Family; Visit Provider Nurse Practitioner Family
DX: Z12.31 Encounter for screening mammogram for malignant neoplasm of breast (principal); R92.8 Other abnormal and inconclusive findings on diagnostic imaging of breast
CPT/HCPCS: 77063; 77067

== ENCOUNTER 2025-05-30 10:15 | Outpatient (CLI) | payer OTHER, SELFPAY ==
--- NOTE | ~2025-05-30 | MMUS_ITS ---
EXAMINATION: MM diagnostic rosetta RT w yumiko, US breast RT limited HISTORY: Follow-up right breast asymmetry TECHNIQUE: Additional 3-D tomosynthesis images of the right breast were performed and synthetic 2-D i mages were generated. CAD analysis was submitted and interpreted. High resolution Limited right breas t ultrasound was performed. COMPARISON: Comparison to multiple prior studies sequentially, with oldest reviewed study dated 03/2017. BREAST PARENCHYMAL COMPOSITION: Not dense: There are scattered areas of fibroglandular density. FINDINGS: MAMMOGRAPHIC FINDINGS: There is a stable small mass in the upper outer quadrant of the right breast, most likely benign lymp h node or cyst. There are no suspicious calcifications or architectural distortion. Focal asymmetry l aterally in the right breast on CC view likely corresponds to focal area of fibroglandular content. ULTRASOUND: Limited right breast ultrasound: At 9:00, 4 cm from the nipple there are 2 adjacent intramammary lymp h nodes, largest measuring 4 mm, likely corresponding to the mammographic nodule. There are multiple normal-appearing right axillary lymph nodes with fatty hilum. No pathologic lymph nodes are identifie d. IMPRESSION: 1. No evidence for malignancy in the right breast. Benign findings. 2. Routine yearly screening mammogram and regular clinical breast examination are recommended. BI-RADS Category 2: Benign finding(s). Reviewed, dictated and finalized at location A. IMPRESSION: 1. No evidence for malignancy in the right breast. Benign findings. 2. Routine yearly screening mammogram and regular clinical breast examination a re recommended. BI-RADS Category 2: Benign finding(s).
--- OUTSIDE RECORDS SUMMARY | 2025-05-30 10:33 | XMS_ITS | Clinical Summary ---
Author Organization [facility] Address [address] [place] [address] Care Team Providers Care Membership Counselor Name Role Phone Jens Mcguire MD Primary Care Provider [phone] Allergies Active Allergy Reactions Criticality Noted Date [...] Uncontrolled type 2 diabetes mellitus with hyperglycemia ([facility]/HCC) 03/02/2014 Overview (02/22/2023): Diabetes mellitus type II, [...] Comments Blood Pressure 153/89 08/23/2022 1:05 PM HOGSHEAD PACKER Pulse 78 08/23/2022 1:05 PM HOGSHEAD PACKER Temperature 37 C (98.6 F) 08/23/2022 1:05 PM HOGSHEAD PACKER Respiratory Rate 20 08/23/2022 1:05 PM HOGSHEAD PACKER Oxygen Saturation 95% 08/23/2022 1:05 PM HOGSHEAD PACKER Inhaled Oxygen Concentration - - Weight 85.4 kg (188 lb 3.2 oz) 08/23/2022 1:05 P M HOGSHEAD PACKER Height 171.5 cm (5' 7.5) 08/23/2022 1:05 PM HOGSHEAD PACKER Body Mass Index 29.04 08/23/2022 1:05 PM HOGSHEAD PACKER Plan of Treatment Health Maintenance Due Date [...] complete this topic Insurance [employer] Care Teams Membership Counselor Relationship Specialty Start Date End Date Jens Mcguire MD [address] [place] [address] PCP - General INTERNAL MEDICINE 05/11/22
--- OUTSIDE RECORDS SUMMARY | 2025-05-30 10:33 | XMS_ITS | Patient Health Record ---
Author Organization [facility] As [employer] Address [address] [place] [address] Care Team Providers Care Insulation Cutter And Former Name Role Phone Shaq Bateman Unavailable [phone] Reason For Referral No Information Medications Medication SIG (Take, Route, Frequency, Duration) Notes Start Date End Date Status metFORMIN HCl 1000 MG Oral 10/01/2020 Active hydroCHLOROthiazide 25 MG Oral 10/01/2020 Active amLODIPine Besylate 5 MG Oral 10/01/2020 Active Olmesartan Medoxomil 40 MG Oral 10/01/2020 Active traZODone HCl 50 MG Oral 10/01/2020 Active Vitamin D *Pick strength-form from [employer] for eRX* 10/01/2020 Active Fluzone High-Dose Quadrivalent 0.7 ML Intramuscular *Reorder from [employer] for eRx and Interaction Alerts* 10/01/2020 Active Ferrous Sulfate 325 (65 Fe) MG Oral 10/01/2020 Active NovoLIN 70/30 (70-30) 100 UNIT/ML Subcutaneous 10/01/2020 Active Potassium Chloride ER 10 MEQ Oral 10/01/2020 Active Sertraline HCl 50 MG Oral 10/01/2020 Active Sertraline HCl 100 MG Oral 10/01/2020 Active Mqlom-1-xuot Ethyl Esters 1 GM Oral 10/01/2020 Active Furosemide 20 MG Oral 10/01/2020 Ac tive Atorvastatin Calcium 20 MG Oral 10/01/2020 Active Immunizations Vaccine Route Administration Date Status Comme nts Influenza, high dose seasonal Unknown 09/10/2019 Admini stered Plan Of Treatment No Information Insurance Providers Payer Name Payer Address Payer Phone Subscriber Number Group Number Insured Name Patient Relationship to Insured Coverage Start Date Coverage End Date [employer] Medicare Replacement/ Advantage - [employer] [address] [place] [phone] [id number] CANDY PAIZ Self - patient is the insured Medical (General) History Surgical History Surgery Date(Month/Year) Appendectomy (02798) Hysterectomy/revise vagina (04993)
== END 2025-05-30 10:16 | disposition home or self-care (01) ==
LOC: ANHIMG 10:17
PROVIDERS: PCP Nurse Practitioner Family; Visit Provider Nurse Practitioner Family
DX: R92.8 Other abnormal and inconclusive findings on diagnostic imaging of breast (principal)
CPT/HCPCS: 76642; 77061; 77065; G0279

== ENCOUNTER 2025-07-02 14:00 | Outpatient (RCR) | payer OTHER, SELFPAY ==
--- NOTE | 2025-05-22 15:58 | OPREHPOC ---
Outpatient Therapy Plan of Care This is a Multidisciplinary Plan of Care that may contain components documented by all disciplines (PT, OT, and ST.) PT Problem 1 PT Problem #1 Knowledge Deficit PT Goal 1 Goal / Goal Update 1. Patient to demonstrate independence with HEP for improved self-reliance of symptom management. Target Visit 3 PT Problem 2 PT Problem #2 Pain PT Goal 1 Goal / Goal Update 1. Patient to decrease subjective reports of pain to <3/10 for improved ADL tolerance. 2. Patient to report an improvement in radiating symptoms in LLE by 50% to increase ability to perform ADLs. 3. Patient will decrease their Modified Oswestry score by at least 10 points to indicate significant improvement in functional abilities and quality of life. Target Visit 8 PT Problem 3 PT Problem #3 Impaired Functional Mobility PT Goal 1 Goal / Goal Update 1. Patient to improve distance ambulated during 2MWT to demonstrate an improvement in ADL endurance. 2.
--- NOTE | 2025-05-22 16:00 | PTOPEVAL1 ---
Assessment and note entered by Nolberto Cordova PT Evaluation Information Assessment Status Evaluation Diagnosis Lumbar radiculopathy ICD-10 Condition Codes (PT) Pain in low back M54.50,Radiculopathy, lumbar region M54.16 Subjective Information Pt presents with low back pain and radiating pain in L leg. These symptoms have been going on for quite a while. She gets pain spasming in the left lateral thigh and tingling in the left anterior velasco. She did physical therapy for this and has undergone 2 injections at [facility]. The 1st injection last year helped but the 2nd was excruciatingly painful at the time it was done and ultimately made her symptoms worse. She believes the injection hit the nerve. Pt states ever since the pain across the back and down the side of thigh and has tingling in the feet. Pt states she feels limited with prolonged standing and walking and states the pain makes her unbalanced. Pt would like to be able perform ADLs with less pain and return to walking her dog. Reported Pain Level Pain Score 7: Self Report Assessment PT Clinical Summary Patient presents to physical therapy with a primary issue of low back pain that radiates to her left leg since after receiving an injection several months ago. Patient demonstrates signs consistent with lumbar stenosis and nerve root compression such as LE weakness, pain, decreased mobility, abnormal posture, gait deficit, and decreased flexibility that limit their ability to perform activities of daily living and functional movements. Patient will benefit from skilled physical therapy to address the above listed deficits and return to prior level of function. Home exercise program instructed and written handout provided, exercises tolerated well with no adverse effects to note post-session. Patient was educated on importance of adherence to home exercise program. Patient was also educated on anatomy, prognosis, home modalities, and plan of care Plan of Care Interventions Gait Training,Hot Pack/Cold Pack,Manual Therapy, Mechanical Traction,Therapeutic Activities, Therapeutic Exercise,Other PT Services Indicated Yes Treatment Frequency and 1-2x week 8 visits Duration These treatments will address the objective and functional deficits as defined above. The patient will be advanced safely and appropriately in order for the patient to progress towards his/her prior level of function. Additional exercises will be introduced and as well as a comprehensive home exercise program upon discharge, if needed, ?to ensure carryover of functional gains achieved in the clinic. This treatment plan has been reviewed and agreement upon by the patient.
--- NOTE | 2025-06-14 12:35 | PCPTNOTE ---
Patient did not show up for scheduled appointment this date.
--- NOTE | 2025-06-18 16:09 | PCPTNOTE ---
Pt no called no showed for todays treatment session. Pt was called and Scheduled 1 visit on Jun 26.
--- NOTE | 2025-07-12 13:57 | PTOPDC ---
Assessment and note entered by Nolberto Cordova, PT Evaluation Information Assessment Status Discharge - Pt Not Present Diagnosis Lumbar radiculopathy ICD-10 Condition Codes (PT) Pain in low back M54.50,Radiculopathy, lumbar region M54.16 Subjective Information Pt called and stated she is having to much pain to continue with physical therapy. Assessment PT Clinical Summary Pt requested discharge from physical therapy at this time. Pt is having high pain levels and working with pain management. Plan of Care PT Services Indicated No
== END 2025-07-12 16:13 | disposition home or self-care (01) ==
LOC: ANHGOSHPT 14:00
PROVIDERS: PCP Nurse Practitioner Family; Visit Provider Nurse Practitioner Adult Health
DX: M54.16 Radiculopathy, lumbar region (principal)
CPT/HCPCS: 97110; 97140; 97161

== ENCOUNTER 2025-09-13 19:06 | Emergency (ER) | payer OTHER, SELFPAY ==
--- OUTSIDE RECORDS SUMMARY | 2025-09-13 19:09 | XMS_ITS | Patient Health Record ---
Author Organization [facility] As [employer] Address [address] [place] [address] Care Team Providers Care Pharmacy Resource Tech Name Role Phone Shaq Bateman Unavailable [phone] Reason For Referral No Information Medications Medication SIG (Take, Route, Frequency, Duration) Notes Start Date End Date Status metFORMIN HCl 1000 MG Tablet Oral 10/01/2020 Active hydroCHLOROthiazide 25 MG Tablet Oral 10/01/2020 Active amLODIPine Besylate 5 MG Tablet Oral 10/01/2020 Active Olmesartan Medoxomil 40 MG Tablet Oral 10/01/2020 Active traZODone HCl 50 MG Tablet Oral 10/01/2020 Active Vitamin D *Pick strength-form from [employer] for eRX* 10/01/2020 Active Fluzone High-Dose Quadrivalent 0.7 ML Suspension Prefilled Syringe Intramuscular *Reorder from [employer] for eRx and Interaction Alerts* 10/01/2020 Active Ferrous Sulfate 325 (65 Fe) MG Tablet Oral 10/01/2020 Active NovoLIN 70/30 (70-30) 100 UNIT/ML Suspension Subcutaneous 10/01/2020 Active Potassium Chloride ER 10 MEQ Tablet Extended Release Oral 10/01/2020 Active Sertraline HCl 50 MG Tablet Oral 10/01/2020 Active Sertraline HCl 100 MG Tablet Oral 10/01/2020 Active Enwhp-0-vwxj Ethyl Esters 1 GM Capsule Oral 10/01/2020 Active Furosemide 20 MG Tablet Oral 10/01/2020 Active Atorvastatin Calcium 20 MG Tablet Oral 10/01/2020 Active Immunizations Vaccine Route Administration Date Status Comme nts Influenza, high dose seasonal Unknown 09/10/2019 Admini stered Social History Social History Additional Details Category Social Info Options Details Migrated Social History Migrated Social History Alcohol Intake: None 09/15/2020,Tobacco Years: Never smoker 08/25/2020,Smoking Status: 0 09/16/2020 Plan Of Treatment No Information Insurance Providers Payer Name Payer Address Payer Phone Subscriber Number Group Number Insured Name Patient Relationship to Insured Coverage Start Date Coverage End Date [employer] Medicare Replacement/ Advantage - [employer] [address] [place] [phone] [id number] CANDY PAIZ Self - patient is the insured Medical (General) History Surgical History Surgery Date(Month/Year) Appendectomy (16022) Hysterectomy/revise vagina (85282)
--- OUTSIDE RECORDS SUMMARY | 2025-09-13 19:09 | XMS_ITS | Clinical Summary ---
Author Organization [facility] Address [address] [place] [address] Care Team Providers Care Dray Driver Name Role Phone Jens Mcguire MD Primary Care Provider [phone] Allergies Active Allergy Reactions Criticality Noted Date [...] Date Uncontrolled type 2 diabetes mellitus with hyper glycemia 03/02/2014 Overview (02/22/2023): Diabetes mellitus type II, [...] Comments Blood Pressure 153/89 08/23/2022 1:05 PM SEMICONDUCTOR ASSEMBLER Pulse 78 08/23/2022 1:05 PM SEMICONDUCTOR ASSEMBLER Temperature 37 C (98.6 F) 08/23/2022 1:05 PM SEMICONDUCTOR ASSEMBLER Respiratory Rate 20 08/23/2022 1:05 PM SEMICONDUCTOR ASSEMBLER Oxygen Saturation 95% 08/23/2022 1:05 PM SEMICONDUCTOR ASSEMBLER Inhaled Oxygen Concentration - - Weight 85.4 kg (188 lb 3.2 oz) 08/23/2022 1:05 P M SEMICONDUCTOR ASSEMBLER Height 171.5 cm (5' 7.5) 08/23/2022 1:05 PM SEMICONDUCTOR ASSEMBLER Body Mass Index 29.04 08/23/2022 1:05 PM SEMICONDUCTOR ASSEMBLER Plan of Treatment Health Maintenance Due Date [...] 75+ series) 2021 COVID-19 Vaccine (4 - 2024-2 6 season) 2025 07/12/2021, 12/17/2020, 11/19/2020 Influenza Adult (#1) 2025 09/10/2019, 08/13/2010 Hepatitis A Vaccines Aged Out No long er eligible based on patient's age to complete this topic Meningococcal B Vaccine Aged Out No l onger eligible based on patient's age to complete this topic Meningococcal Vaccine Aged Out No gilberto guilherme eligible based on patient's age to complete this topic RSV Immunizations Under 20 Months Aged Out No longer eligible b ased on patient's age to complete this topic Insurance [employer] Care Teams Dray Driver Relationship Specialty Start Date End Date Jens Mcguire MD [address] [place] [address] (work) PCP - General INTERNAL MEDICINE 05/11/22
[2025-09-13 19:13] VITALS: BP 180/77; PULSE 82; RESP 20; TEMP 36.6; O2SAT 98
--- NOTE | 2025-09-13 20:40 | ED_ITS ---
HPI - Overdose General Chief Complaint: Overdose Stated Complaint: Thinks she took too much ozempic Time Seen by Provider: 09/13/25 20:26 History of Present Illness HPI Narrative: Patient has very bad eyesight, was trying to give herself her Ozempic, thinks that she missed and no medication was administered, had her son help for given dose. Afterwards she was concerned that maybe there may have been overdose if she actually got 2 doses. She has no symptoms whatsoever. She checked her blood sugar before arrival here and was high. Related Data Home Medications ?Medication ?Instructions ?Recorded ?Confirmed ?Last Taken ?Type cholecalciferol (vitamin D3) 50 2,000 unit PO DAILY 07/30/25 Unknown History mcg (2,000 unit) tablet ferrous sulfate 325 mg (65 mg 325 mg PO DAILY 07/04/24 07/30/25 Unknown History iron) tablet,delayed release vitamin B complex 1 cap PO DAILY 10/15/2407/17 Unknown History Allergies Allergy/AdvReac Type Severity Reaction Status Date / Time BURT Inhibitors Allergy Mild cough Verified 07/30/25 13:17 MEPERIDINE HCL Allergy Mild BECOMES Uncoded 07/30/25 13:17 COMBATIVE Review of Systems Review of Systems: All systems reviewed & are unremarkable except as noted in HPI and below PMFSH Past Medical History Medical History Sleep disorder Mixed hyperlipidemia Hypovitaminosis D Type 2 diabetes mellitus with hyperglycemia Right ear impacted cerumen Postmenopause Mixed hyperlipidemia due to type 2 diabetes mellitus MDD (major depressive disorder), recurrent episode, mild shelter (current) use of insulin Left breast mass Immunization counseling Hx of breast cancer HSV (herpes simplex virus) infection DJD (degenerative joint disease), lumbosacral Dietary counseling and surveillance (01/09/18) Colon cancer screening Closed fracture of right tibial plateau with routine healing 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 Breast screening Benign essential HTN Arthritis Tibial plateau fracture, right Diabetic retinopathy associated with type 2 diabetes mellitus Left ventricular hypertrophy Sleep disorder Mixed hyperlipidemia HTN (hypertension) Diabetes mellitus with diabetic neuropathy, with long-term current use of insulin Surgical History Surgical History History of lumpectomy History of partial hysterectomy Family History Family History Mother Hypertension Patient's mother is Family history of arthritis Family history of malignant neoplasm Father Family history of liver disease Patient's father is Cerebrovascular accident, Onset Age: 68 Sibling Family history of malignant neoplasm, Onset Age: 60 Social History Social History Smoking status: Never smoker Second hand tobacco smoke exposure: No Alcohol intake: never Substance use: never Substance use type: does not use Lack of Transportation: No Lack of Food: Never True Current Housing: I Have Housing Concerned About Future Housing: No Difficulty Paying Gas/Electric Bills: No Difficulty Paying for Meds: YES Currently Unemployed: No Education: Bachelor's Degree Difficulty w/ Childcare or Family Care: No Living arrangements: with family Occupation/Education: retired Gender identity (if verbalized by the patient): Female Sexual Orientation (if Verbalized by the Patient): Straight or Heterosexual Spiritual care concerns: No Agree to blood products: Yes Exam Narrative: EXAMINATION OF ORGAN SYSTEMS/BODY AREAS: Constitutional: Vital signs per nursing GENERAL:[No acute distress, non-toxic appearing.] HEAD: Normal with no signs of head trauma. EYES: EOMI, conjunctiva normal ENT: Hearing grossly intact LUNGS: Nonlabored breathing. HEART: [Regular rate and rhythm] ABD: [Soft], [nontender to palpation] EXT: Normal range of motion SKIN: [No rashes or lesions.] NEURO: [Alert and oriented x 3. No gross focal sensory or strength deficits.] PSYCH: Normal affect Course Vital Signs Vital signs: Vital Signs Temperature 97.8 F 09/13/25 19:13 Pulse Rate 82 09/13/25 19:13 Respiratory Rate 20 09/13/25 19:13 Blood Pressure 180/77 H 09/13/25 19:13 Pulse Oximetry 98 09/13/25 19:13 Oxygen Delivery Room Air 09/13/25 19:13 Temperature 97.8 F 09/13/25 19:13 Pulse Rate 82 09/13/25 19:13 Respiratory Rate 20 09/13/25 19:13 Blood Pressure 180/77 H 09/13/25 19:13 Pulse Oximetry 98 09/13/25 19:13 Oxygen Delivery Room Air 09/13/25 19:13 MDM - Overdose MDM Narrative Medical decision making narrative: Patient presenting with concern for giving herself extra dose of Ozempic, she is asymptomatic. She is on the absolute lowest dose of his and possible, did discuss with patient that she likely will not have any toxicity from this as at therapeutic dose can be up to 4 times her current dose. Did discuss with her she may experience more GI upset or other side effects if she did and having a 2nd dose of Ozempic. Asked to follow up with her primary care doctor, and that if she starts having any symptoms at all she can return to the emergency room. Discharge Plan Discharge Clinical Impression: Normal exam Patient Disposition: Home Condition: Stable Additional Instructions: You can follow up with your PCP; you can always return to the ER if you develop any symptoms. Patient Language: Greek Prescriptions: No Action cholecalciferol (vitamin D3) 2,000 unit tablet 2,000 unit PO DAILY ferrous sulfate 325 mg (65 mg iron) tablet,delayed release (DR/EC) 325 mg PO DAILY vitamin B complex Capsule 1 cap PO DAILY polyethylene glycol 3350 [Miralax] 17 gram/dose powder 17 g PO DAILY Qty: 238 0RF omega-3 acid ethyl esters [Lovaza] 1 gram capsule 2 cap PO BID Qty: 360 1RF gabapentin 300 mg capsule See Rx Instructions PO BID Qty: 450 1RF Rx Instructions: 600 mg in the am and 900mg at night. lidocaine 5 % adhesive patch,medicated 1 patch topical DAILY Qty: 30 3RF Rx Instructions: leave on most painful area for up to 12 hrs artifi.tears(hypromellose)(PF) 1.7 % drops with applicator 1 drp RIGHT EYE Q1H PRN (Reason: dry eyes) Qty: 12 0RF Rx Instructions: while awake; not to exceed 16 doses per 24 hour period acetaminophen [Tylenol Extra Strength] 500 mg tablet 1,000 mg PO Q6H PRN (Reason: pain) Qty: 30 0RF omeprazole 40 mg capsule,delayed release(DR/EC) 40 mg PO DAILY Qty: 30 2RF (DME) Comfort Touch Ult Thin Lancets 31 gauge misc See Rx Instructions .Route Qty: 100 0RF Rx Instructions: check blood sugar 2xdaily (DME) blood-glucose meter [Contour Next EZ Meter] Kit See Rx Instructions .Route Qty: 1 0RF Rx Instructions: test blood sugar 2xdaily (DME) Contour Next Test Strips Strip See Rx Instructions .Route Qty: 100 0RF Rx Instructions: test blood sugar 2xdaily albuterol sulfate 90 mcg/actuation HFA aerosol inhaler 2 inh inhalation Q4H PRN (Reason: shortness of breath or wheezing) Qty: 8.5 0RF metformin 1,000 mg tablet 1,000 mg PO DAILY Qty: 180 1RF amlodipine 5 mg tablet See Rx Instructions .ROUTE .COMPLEX Qty: 90 1RF Dose Instruction: 5 MG ORALLY DAILY Rx Instructions: 5 MG ORALLY DAILY olmesartan 40 mg tablet See Rx Instructions .ROUTE .COMPLEX Qty: 90 1RF Dose Instruction: TAKE 1 TABLET BY MOUTH EVERY DAY Rx Instructions: TAKE 1 TABLET BY MOUTH EVERY DAY duloxetine 30 mg capsule,delayed release(DR/EC) 30 mg PO DAILY Qty: 90 1RF naproxen 500 mg tablet 500 mg PO BID PRN (Reason: pain) Qty: 60 2RF Ozempic 1 mg/dose (4 mg/3 mL) pen injector See Rx Instructions .ROUTE .COMPLEX Qty: 3 3RF Dose Instruction: INJECT 1 MG (0.75 ML) SUBCUTANEOUSLY WEEKLY Rx Instructions: INJECT 1 MG (0.75 ML) SUBCUTANEOUSLY WEEKLY atorvastatin 20 mg tablet See Rx Instructions .ROUTE .COMPLEX Qty: 90 1RF Dose Instruction: TAKE 1 TABLET BY MOUTH EVERY DAY Rx Instructions: TAKE 1 TABLET BY MOUTH EVERY DAY Follow-up/Referrals: Maryjo Wilson APRN [Primary Care Provider, Internal Medicine]
--- OUTSIDE RECORDS SUMMARY | 2025-09-13 20:47 | XMS_ITS | Clinical Summary ---
Author Organization [facility] [place] [facility] Address [address] [place] [address] Care Team Providers Care Executive Vice President Name Role Phone Jens Mcguire MD Primary Care Provider [phone] Allergies Active Allergy Reactions Criticality Noted Date [...] Comments Blood Pressure 153/89 08/23/2022 1:05 PM ITEM PROCESSOR Pulse 78 08/23/2022 1:05 PM ITEM PROCESSOR Temperature 37 C (98.6 F) 08/23/2022 1:05 PM ITEM PROCESSOR Respiratory Rate 20 08/23/2022 1:05 PM ITEM PROCESSOR Oxygen Saturation 95% 08/23/2022 1:05 PM ITEM PROCESSOR Inhaled Oxygen Concentration - - Weight 85.4 kg (188 lb 3.2 oz) 08/23/2022 1:05 P M ITEM PROCESSOR Height 171.5 cm (5' 7.5) 08/23/2022 1:05 PM ITEM PROCESSOR Body Mass Index 29.04 08/23/2022 1:05 PM ITEM PROCESSOR Plan of Treatment Health Maintenance Due Date [...] complete this topic Insurance [employer] Care Teams Executive Vice President Relationship Specialty Start Date End Date Jens Mcguire MD [address] [place] [address] (work) PCP - General INTERNAL MEDICINE 05/11/22
== END 2025-09-13 20:55 | disposition home or self-care (01) ==
PROVIDERS: Emergency Provider Emergency Medicine; PCP Nurse Practitioner Family
DX: Z04.89 Encounter for examination and observation for other specified reasons (principal); E11.319 Type 2 diabetes mellitus with unspecified diabetic retinopathy without macular edema; E11.69 Type 2 diabetes mellitus with other specified complication; E78.2 Mixed hyperlipidemia; E11.40 Type 2 diabetes mellitus with diabetic neuropathy, unspecified; I10 Essential (primary) hypertension; E55.9 Vitamin D deficiency, unspecified; M47.817 Spondylosis without myelopathy or radiculopathy, lumbosacral region; F33.9 Major depressive disorder, recurrent, unspecified; Z85.3 Personal history of malignant neoplasm of breast; Z79.85 Long-term (current) use of injectable non-insulin antidiabetic drugs; Z79.84 Long term (current) use of oral hypoglycemic drugs; Z79.899 Other long term (current) drug therapy; Z90.711 Acquired absence of uterus with remaining cervical stump
CPT/HCPCS: 99281